=== PATIENT | male | born 1960 | race Caucasian/White ===

== ENCOUNTER 2019-08-11 17:28 | Inpatient (IN) ==
[2019-08-11 17:56] LABS: Basophils # (auto) 0.03 K/uL (0-0.2); Basophils % (auto) 0.3 %; Eosinophils # (auto) 0.16 K/uL (0-0.5); Eosinophils % (auto) 1.4 %; Hematocrit (blood only) 46.6 % (42-52); Hemoglobin 16.2 g/dL (14.0-18.0); Immature Granulocytes # (auto) 0.03 K/uL (0.00-0.02); Immature Granulocytes % (auto) 0.3 %; Lymphocytes # (auto) 2.91 K/uL (1.2-3.4); Lymphocytes % (auto) 25.9 %; Mean Corpuscular Hemoglobin 30.2 pg (25-34); Mean Corpuscular Hgb Conc 34.8 g/dL (32-36); Mean Corpuscular Volume 86.8 fL (80-100); Mean Platelet Volume 10.5 fL (7.4-10.4); Monocytes # (auto) 0.98 K/uL (0.11-0.59); Monocytes % (auto) 8.7 %; Neutrophils # (auto) 7.12 K/uL (1.4-6.5); Neutrophils % (auto) 63.4 %; Platelet Count 292 K/uL (130-400); RDW Coefficient of Variation 14.9 % (11.5-14.5); RDW Standard Deviation 46.9 fL (36.4-46.3); Red Blood Count 5.37 M/uL (4.7-6.1); White Blood Count 11.23 K/uL (4.8-10.8)
--- NOTE | 2019-08-11 17:56 | XRay Report ---
SINGLE VIEW CHEST CLINICAL HISTORY: Atypical chest pain. FINDINGS: An AP, portable, upright chest radiograph is compared to study dated 08/20/2013. The examina tion is degraded by portable technique and apical lordotic positioning. The heart is enlarged noting atherosclerotic calcification of the thoracic aorta. The pulmonary vasculature is noncongested. There is mild left basilar atelectasis. The lungs and pleural spaces are otherwise clear. No pneumothorax is seen. The skeletal structures are osteopenic. The bony thorax is grossly intact. IMPRESSION: Cardiomegaly with no active disease in the chest. ACT 112: Negative or not required by law. Electronically signed by: Keven Goodman M.D. 08/11/2019 5:55 PM
[2019-08-11] MEDS ORDERED: SODIUM CHLORIDE 0.9% 500 ML IV SCH (18:00)
[2019-08-11 18:07] LABS: Partial Thromboplastin Ratio 0.9; Partial Thromboplastin Time 24.4 Seconds (21.0-31.0); Prothrombin Time 10.2 Seconds (9.0-12.0)
[2019-08-11] MEDS ORDERED: OPTIRAY 320 125ml IV PRN (18:15)
[2019-08-11 18:27] LABS: Alanine Aminotransferase 20 U/L (12-78); Albumin Level 4.3 gm/dl (3.4-5.0); Alkaline Phosphatase 98 U/L (45-117); Aspartate Aminotransferase 12 U/L (15-37); BUN Creatinine Ratio 9.4 (10-20); Bilirubin,Total 0.4 mg/dl (0.2-1); Blood Urea Nitrogen 10 mg/dl (7-18); Calcium 9.5 mg/dl (8.5-10.1); Carbon Dioxide 27 mmol/L (21-32); Chloride 97 mmol/L (98-107); Creatinine Clr Calc Pharmacy 104.3 ml/min; Est GFR (African American) 87.2; Est GFR (Non-African American) 75.3; Globulin 4.1 gm/dl (2.5-4.0); Glucose 381 mg/dl (70-99); Lipase 195 U/L (73-393); Potassium 3.7 mmol/L (3.5-5.1); Sodium 132 mmol/L (136-145); Total Protein 8.4 gm/dl (6.4-8.2); Troponin I 0.093 ng/ml (0-0.045)
--- NOTE | 2019-08-11 18:37 | CT Scan Report ---
CT ANGIOGRAM OF THE CHEST CLINICAL HISTORY: Dyspnea. COMPARISON STUDY: Chest x-ray dated 08/11/2019. TECHNIQUE: Following the IV administration of 94 cc of Optiray 320, CT angiogram of the chest was per formed from the upper abdomen to the thoracic inlet utilizing the pulmonary embolus protocol. Images are reviewed in the axial, sagittal, and coronal planes. 3-D MIPS images are created and assessed. IV contrast was administered without complication. A dose lowering technique was utilized adhering to the principles of ALARA. CT DOSE: 828.31 mGy.cm FINDINGS: Thyroid: Imaged portions of the thyroid gland are normal in size and attenuation. Thoracic aorta: There is mild atherosclerotic calcification of the thoracic aorta. There is aneurysma l dilatation of the ascending thoracic aorta which measures up to 4.5 cm in diameter. The remainder o f the thoracic aorta is normal in caliber, and the arch and demonstrates standard 3-vessel anatomy. T here is suboptimal contrast opacification of the thoracic aorta, with no evidence of dissection. Pulmonary vasculature: The pulmonary trunk is dilated, measuring 3.7 cm in diameter. This suggests pu lmonary artery hypertension. There are no filling defects identified in main, lobar, or segmental pul monary branches to suggest pulmonary embolus. Evaluation of the peripheral vessels is degraded by mot ion artifact. Heart: The heart is markedly enlarged and without pericardial effusion. The coronary arteries are den sely calcified. Lungs and pleural spaces: Evaluation of the lung parenchyma is modestly degraded by motion artifact. There is no airspace consolidation or pleural effusion. Dependent atelectasis is noted. There are sca ttered tiny calcified granulomas. The trachea and central airways are clear. Mediastinum: Prominent mediastinal lymph nodes measure up to 12 mm in short axis. Cathleen: Clear. Axillae: There is no axillary lymphadenopathy. Upper abdomen: There is a small hiatal hernia. Partially visualized upper abdominal viscera is otherw ise grossly unremarkable. Skeletal structures: The skeletal structures are osteopenic. No lytic or blastic bony lesions are see n. IMPRESSION: 1. There is no evidence of pulmonary embolus in the main, lobar, or segmental pulmonary arteries. 2. Marked cardiomegaly with evidence of pulmonary artery hypertension. 3. There is aneurysmal dilatation of the ascending thoracic aorta which measures up to 4.5 cm in diam eter. Nonemergent surgical follow-up is recommended. 4. There is no airspace consolidation or pleural effusion. ACT 112: Negative or not required by law. Electronically signed by: Keven Goodman M.D. 08/11/2019 6:35 PM
[2019-08-11] MEDS ORDERED: LABETALOL HCL IV 5 MG/ML 20ML IV STA ×2 (18:40→19:36)
[2019-08-11] MEDS ORDERED: Heparin BOLUS **ED Use Only IV STA (19:31)
[2019-08-11] MEDS ORDERED: NovoLIN-R INSULIN PER UNIT CHARGE IV STA (19:36)
[2019-08-11] MEDS: HEPARIN SODIUM/DEXTROSE 25,000 UNITS/500 ML BAG IV SCH (19:47)
--- NOTE | 2019-08-11 21:10 | Emergency Department Note ---
Entered by Estelle Coffey acting as a scribe for Reynold Keys DO History of Present Illness General Chief complaint: Referred by Doctor Stated complaint: BLOOD CLOT IN RIGHT LEG - REF BY DOC Source: patient History of Present Illness Provider complaint: right leg swelling Onset (ago): week(s) (several) Location: lower extremity and right Pain Consistency: + constant Maximum Pain Intensity: 0 Relieved By: + none Exacerbated By: + none Associated symptoms: + other (-right leg pain, -diarrhea); no chest pain, no nausea/vomiting and no shortness of breath The patient is a 59 year old male who presents to the Emergency Room with complaints of constant right lower extremity swelling for the past several h ours. The patient reports that he was at his PCP today and they referred him to the ED because of a blood clot. He reports that his PCP wanted a CT of the chest done. The patient reports that he was recently placed back on hypertension medication on Friday. He denies any chest pain, shortness of breath, nausea, vomiting, or diarrhea. He denies any right lower extremity pain. He denies any recent travel. Home Medications Home Medications Medication Instructions Recorded Confirmed Type aspirin [Aspir-81] 81 mg PO DAILY 08/11/19 08/11/19 History furosemide [Lasix] 40 mg PO DAILY 08/11/19 08/11/19 History furosemide [Lasix] 40 mg PO DAILY PRN 08/11/19 08/11/19 History hydralazine 100 mg PO TID 08/11/19 08/11/19 History lisinopril 10 mg PO BID 08/11/19 08/11/19 History metformin [Glucophage] 500 mg PO BID 08/11/19 08/11/19 History metoprolol succinate [Toprol XL] 75 mg PO BID 08/11/19 08/11/19 History nitroglycerin [Nitrostat] 0.4 mg SUBLINGUAL UD PRN 08/11/19 08/11/19 History Allergies Allergy/AdvReac Type Severity Reaction Status Date / Time No Known Allergies Allergy Unverified 08/11/19 18:43 Past Med/Surg History Medical History Hypertension (Inactive) Social History Preferred Language: Khmer Feels Safe at Home: Yes Smoking Status: Never smoker Review of Systems See HPI for pertinent positives & negatives. and A total of 10 systems reviewed and were otherwise negative Physical Exam Vital Signs Vital Signs - 24 hr 08/11/19 17:32 08/11/19 18:19 08/11/19 18:30 Temperature 36.8 C Temperature Source Oral Pulse Rate 91 H 92 H 85 Pulse Rate from SpO2 Sensor 92 H 85 Respiratory Rate 18 20 18 Respiratory Effort / Characteristics Non-Labored Spontaneous Respiratory Depth Normal Respiratory Pattern Regular Blood Pressure 221/110 H 207/154 H 210/132 H Blood Pressure Mean 147 180 165 Blood Pressure Position Sitting Pulse Oximetry 98 98 97 Oxygen Delivery Method Room Air Sepsis Recent Fever Within 48 Hours No Sepsis New/Unexplained Change in Mental Status No Sepsis Action Taken by Nursing No Action Required 08/11/19 18:38 08/11/19 18:53 08/11/19 18:55 Temperature Temperature Source Pulse Rate 89 89 Pulse Rate from SpO2 Sensor 79 85 Respiratory Rate 23 21 Respiratory Effort / Characteristics Respiratory Depth Respiratory Pattern Blood Pressure 217/146 H 224/139 H Blood Pressure Mean 171 151 Blood Pressure Position Pulse Oximetry 98 96 96 Oxygen Delivery Method Room Air Sepsis Recent Fever Within 48 Hours Sepsis New/Unexplained Change in Mental Status Sepsis Action Taken by Nursing 08/11/19 19:00 08/11/19 19:35 08/11/19 19:39 Temperature Temperature Source Pulse Rate 83 76 81 Pulse Rate from SpO2 Sensor 81 76 81 Respiratory Rate 26 H 23 20 Respiratory Effort / Characteristics Respiratory Depth Respiratory Pattern Blood Pressure 213/141 H 178/123 H 183/122 H Blood Pressure Mean 161 131 144 Blood Pressure Position Pulse Oximetry 96 97 96 Oxygen Delivery Method Sepsis Recent Fever Within 48 Hours Sepsis New/Unexplained Change in Mental Status Sepsis Action Taken by Nursing 08/11/19 19:40 08/11/19 19:50 08/11/19 20:00 Temperature Temperature Source Pulse Rate 81 77 77 Pulse Rate from SpO2 Sensor 78 78 76 Respiratory Rate 20 23 20 Respiratory Effort / Characteristics Respiratory Depth Respiratory Pattern Blood Pressure 181/128 H 190/126 H 183/116 H Blood Pressure Mean 134 151 138 Blood Pressure Position Pulse Oximetry 96 96 95 Oxygen Delivery Method Sepsis Recent Fever Within 48 Hours Sepsis New/Unexplained Change in Mental Status Sepsis Action Taken by Nursing 08/11/19 20:10 08/11/19 20:20 08/11/19 20:30 Temperature Temperature Source Pulse Rate 77 74 73 Pulse Rate from SpO2 Sensor 71 69 63 Respiratory Rate 25 H 21 14 Respiratory Effort / Characteristics Respiratory Depth Respiratory Pattern Blood Pressure 178/114 H 153/94 H 146/92 H Blood Pressure Mean 124 118 108 Blood Pressure Position Pulse Oximetry 95 95 94 Oxygen Delivery Method Sepsis Recent Fever Within 48 Hours Sepsis New/Unexplained Change in Mental Status Sepsis Action Taken by Nursing 08/11/19 20:40 08/11/19 20:50 Temperature Temperature Source Pulse Rate 71 72 Pulse Rate from SpO2 Sensor 71 72 Respiratory Rate 20 21 Respiratory Effort / Characteristics Respiratory Depth Respiratory Pattern Blood Pressure 160/97 H 147/93 H Blood Pressure Mean 112 107 Blood Pressure Position Pulse Oximetry 93 94 Oxygen Delivery Method Sepsis Recent Fever Within 48 Hours Sepsis New/Unexplained Change in Mental Status Sepsis Action Taken by Nursing GENERAL: alert, sitting up in bed, well nourished, no distress, non-toxic EYE EXAM: normal conjunctiva OROPHARYNX: no exudate, no erythema, lips, buccal mucosa, and tongue normal and mucous membranes are moist NECK: supple, no nuchal rigidity, no adenopathy, non-tender LUNGS: Clear to auscultation. Normal chest wall mechanics HEART: no murmurs, S1 normal and S2 normal ABDOMEN: abdomen soft, non-tender, normo-active bowel sounds, no masses, no rebound or guarding. BACK: Back is symmetrical on inspection and there is no deformity, no midline tenderness, no CVA tenderness. SKIN: no rashes and no bruising UPPER EXTREMITIES: upper extremities are grossly normal. LOWER EXTREMITIES: No pitting edema. Right calf larger than left. DP and PT 2/4. NEURO EXAM: Normal sensorium, cranial nerves II-XII grossly intact, normal speech, no gross weakness of arms, no gross weakness of legs. Course Course ED COURSE: Vital signs were reviewed and showed hypertensive and tachycardic. The patients medical record was reviewed The above diagnostic studies were performed and reviewed. ED treatments and interventions as stated above. 1740: The patient was evaluated in room A9B. A complete history and physical examination was performed. 1901: I reevaluated the patient and updated him on his results. I recommended a dmission and he declined. 1914: Upon reevaluation, the patient is resting comfortably. I discussed my findings with the patient and he understands and agrees with the treatment plan. 1929: I reviewed the patient's case with Dr. Jimenez- [facility] Hospitalist. He will evaluate the patient for further management. Based on the patients age, coexisting illnesses, exam and lab findings the decision to treat as an inpatient was made. The patient remained stable while under my care. The patient will be evaluated for further management. Administered Medications Heparin Sodium/Dextrose (Heparin Sodium/Dextrose) 25,000 units in 500 mls @ 36 mls/hr IV .[id number] [facility]; Protocol Stop: 09/10/19 18:44 Last Admin: 08/11/19 19:47 Dose: 1,800 units/hr, 36 mls/hr Documented by: [id number] Cosigned by: [id number] Ioversol (Optiray 320 125ml) 94 ml IV ONCE PRN PRN Reason: Interaction Checking Stop: 08/15/19 18:14 Last Admin: 08/11/19 18:15 Dose: 94 ml Documented by: [id number] Discontinued Medications Heparin Sodium (Porcine) (Heparin Iv Bolus) 8,000 units IV NOW STA Stop: 08/11/19 19:32 Last Admin: 08/11/19 19:48 Dose: 5,000 units Documented by: [id number] Cosigned by: [id number] Heparin Sodium/Dextrose () 1 ea IV NOW STA; Protocol Stop: 08/11/19 18:41 Last Admin: 08/11/19 20:11 Dose: 1 ea Documented by: [id number] Sodium Chloride (Nss) 500 mls @ 999 mls/hr IV .Q31M [facility] Stop: 08/11/19 18:30 Last Infusion: 08/11/19 18:38 Dose: 0 mls/hr Documented by: [id number] Admin: 08/11/19 18:10 Dose: 999 mls/hr Documented by: [id number] Insulin Human Regular (Novolin R U-100 Per Unit) 5 units IV NOW STA Stop: 08/11/19 19:37 Last Admin: 08/11/19 19:48 Dose: 5 units Documented by: [id number] Cosigned by: [id number] Labetalol HCl (Normodyne) 10 mg IV NOW STA Stop: 08/11/19 18:41 Last Admin: 08/11/19 19:35 Dose: 10 mg Documented by: [id number] Cosigned by: [id number] Labetalol HCl (Normodyne) 10 mg IV NOW STA Stop: 08/11/19 19:37 Last Admin: 08/11/19 20:11 Dose: 10 mg Documented by: [id number] Cosigned by: [id number] Critical Care Time Critical Care Time: Yes Total Critical Care Time: 45 I have personally spent 45 minutes of critical care time in the direct management of this patient. This includes bedside care, interpretation of diagnostic studies, and testing, discussion with consultants, patient, and family members, and other required patient management activities. This 45 minutes is in excess of all separately billable procedures. Medical Decision Making Differential Diagnosis Differential diagnosis: Etiologies such as DVT, musculoskeletal, infection, join t effusion, trauma, lymphedema, idiopathic, CHF, as well as others were entertained. Medical Records Attestation: I reviewed the patient's medical records. Home Medications Current Medication List: was personally reviewed by me Laboratory Data Attestation: I reviewed the patient's lab results. Result diagrams: 08/11/19 17:45 08/11/19 17:45 Lab Results 08/11/19 08/11/19 08/11/19 Range/Units 17:45 17:45 17:45 WBC 11.23 H (4.8-10.8) K/uL RBC 5.37 (4.7-6.1) M/uL Hgb 16.2 (14.0-18.0) g/dL Hct 46.6 (42-52) % MCV 86.8 (80-100) fL MCH 30.2 (25-34) pg MCHC 34.8 (32-36) g/dL RDW Std Deviation 46.9 H (36.4-46.3) fL RDW Coeff of Kerline 14.9 H (11.5-14.5) % Plt Count 292 (130-400) K/uL MPV 10.5 H (7.4-10.4) fL Immature Gran % (Auto) 0.3 % Neut % (Auto) 63.4 % Lymph % (Auto) 25.9 % Giles % (Auto) 8.7 % Eos % (Auto) 1.4 % Baso % (Auto) 0.3 % Immature Gran # (Auto) 0.03 H (0.00-0.02) K/uL Neut # (Auto) 7.12 H (1.4-6.5) K/uL Lymph # (Auto) 2.91 (1.2-3.4) K/uL Giles # (Auto) 0.98 H (0.11-0.59) K/uL Eos # (Auto) 0.16 (0-0.5) K/uL Baso # (Auto) 0.03 (0-0.2) K/uL PT 10.2 (9.0-12.0) Seconds INR 1.0 (0.9-1.1) APTT 24.4 (21.0-31.0) Seconds PTT Ratio 0.9 Sodium 132 L (136-145) mmol/L Potassium 3.7 (3.5-5.1) mmol/L Chloride 97 L (98-107) mmol/L Carbon Dioxide 27 (21-32) mmol/L Anion Gap 9.0 (3-11) BUN 10 (7-18) mg/dl Creatinine 1.08 (0.6-1.4) mg/dl POC Creatinine (0.6-1.3) mg/dl Est Cr Clr Drug Dosing 104.3 ml/min Est GFR ( Amer) 87.2 Est GFR (Non-Af Amer) 75.3 BUN/Creatinine Ratio 9.4 L (10-20) Glucose 381 H* (70-99) mg/dl POC Glucose (70-99) mg/dl Calcium 9.5 (8.5-10.1) mg/dl Total Bilirubin 0.4 (0.2-1) mg/dl AST 12 L (15-37) U/L ALT 20 (12-78) U/L Alkaline Phosphatase 98 (45-117) U/L Troponin I 0.093 H* (0-0.045) ng/ml Total Protein 8.4 H (6.4-8.2) gm/dl Albumin 4.3 (3.4-5.0) gm/dl Globulin 4.1 H (2.5-4.0) gm/dl Albumin/Globulin Ratio 1.0 (0.9-2) Lipase 195 (73-393) U/L Beta-Hydroxybutyric Acd TNP 08/11/19 08/11/19 08/11/19 Range/Units 17:51 19:06 20:32 WBC (4.8-10.8) K/uL RBC (4.7-6.1) M/uL Hgb (14.0-18.0) g/dL Hct (42-52) % MCV (80-100) fL MCH (25-34) pg MCHC (32-36) g/dL RDW Std Deviation (36.4-46.3) fL RDW Coeff of Kerline (11.5-14.5) % Plt Count (130-400) K/uL MPV (7.4-10.4) fL Immature Gran % (Auto) % Neut % (Auto) % Lymph % (Auto) % Giles % (Auto) % Eos % (Auto) % Baso % (Auto) % Immature Gran # (Auto) (0.00-0.02) K/uL Neut # (Auto) (1.4-6.5) K/uL Lymph # (Auto) (1.2-3.4) K/uL Giles # (Auto) (0.11-0.59) K/uL Eos # (Auto) (0-0.5) K/uL Baso # (Auto) (0-0.2) K/uL PT (9.0-12.0) Seconds INR (0.9-1.1) APTT (21.0-31.0) Seconds PTT Ratio Sodium (136-145) mmol/L Potassium (3.5-5.1) mmol/L Chloride (98-107) mmol/L Carbon Dioxide (21-32) mmol/L Anion Gap (3-11) BUN (7-18) mg/dl Creatinine (0.6-1.4) mg/dl POC Creatinine 0.8 (0.6-1.3) mg/dl Est Cr Clr Drug Dosing ml/min Est GFR ( Amer) Est GFR (Non-Af Amer) BUN/Creatinine Ratio (10-20) Glucose (70-99) mg/dl POC Glucose 333 H* 299 H (70-99) mg/dl Calcium (8.5-10.1) mg/dl Total Bilirubin (0.2-1) mg/dl AST (15-37) U/L ALT (12-78) U/L Alkaline Phosphatase (45-117) U/L Troponin I (0-0.045) ng/ml Total Protein (6.4-8.2) gm/dl Albumin (3.4-5.0) gm/dl Globulin (2.5-4.0) gm/dl Albumin/Globulin Ratio (0.9-2) Lipase (73-393) U/L Beta-Hydroxybutyric Acd Imaging Data Radiologist's Impression: Radiology results as stated below per my review and the radiologist's interpretation: SINGLE VIEW CHEST CLINICAL HISTORY: Atypical chest pain. FINDINGS: An AP, portable, upright chest radiograph is compared to study dated 08/20/2013. The examination is degraded by portable technique and apical lordotic positioning. The heart is enlarged noting atherosclerotic calcification of the thoracic aorta. The pulmonary vasculature is noncongested. There is mild left basilar atelectasis. The lungs and pleural spaces are otherwise clear. No pneumothorax is seen. The skeletal structures are osteopenic. The bony thorax is grossly intact. IMPRESSION: Cardiomegaly with no active disease in the chest. ACT 112: Negative or not required by law. Electronically signed by: Keven Goodman M.D. 08/11/2019 5:[address] ANGIOGRAM OF THE CHEST CLINICAL HISTORY: Dyspnea. COMPARISON STUDY: Chest x-ray dated 08/11/2019. TECHNIQUE: Following the IV administration of 94 cc of Optiray 320, CT angiogram of the chest was performed from the upper abdomen to the thoracic inlet utilizing the pulmonary embolus protocol. Images are reviewed in the axial, sagittal, and coronal planes. 3-D MIPS images are created and assessed. IV contrast was administered without complication. A dose lowering technique was utilized adhering to the principles of ALARA. CT DOSE: 828.31 mGy.cm FINDINGS: Thyroid: Imaged portions of the thyroid gland are normal in size and attenuation. Thoracic aorta: There is mild atherosclerotic calcification of the thoracic aorta. There is aneurysmal dilatation of the ascending thoracic aorta which measures up to 4.5 cm in diameter. The remainder of the thoracic aorta is normal in caliber, and the arch and demonstrates standard 3-vessel anatomy. There is suboptimal contrast opacification of the thoracic aorta, with no evidence of dissection. Pulmonary vasculature: The pulmonary trunk is dilated, measuring 3.[address] This suggests pulmonary artery hypertension. There are no filling defects identified in main, lobar, or segmental pulmonary branches to suggest pulmonary embolus. Evaluation of the peripheral vessels is degraded by motion artifact. Heart: The heart is markedly enlarged and without pericardial effusion. The coronary arteries are densely calcified. Lungs and pleural spaces: Evaluation of the lung parenchyma is modestly degraded by motion artifact. There is no airspace consolidation or pleural effusion. Dependent atelectasis is noted. There are scattered tiny calcified granulomas. The trachea and central airways are clear. Mediastinum: Prominent mediastinal lymph nodes measure up to 12 mm in short axis. Cathleen: Clear. Axillae: There is no axillary lymphadenopathy. Upper abdomen: There is a small hiatal hernia. Partially visualized upper abdominal viscera is otherwise grossly unremarkable. Skeletal structures: The skeletal structures are osteopenic. No lytic or blastic bony lesions are seen. IMPRESSION: 1. There is no evidence of pulmonary embolus in the main, lobar, or segmental pulmonary arteries. 2. Marked cardiomegaly with evidence of pulmonary artery hypertension. 3. There is aneurysmal dilatation of the ascending thoracic aorta which measures up to 4.5 cm in diameter. Nonemergent surgical follow-up is recommended. 4. There is no airspace consolidation or pleural effusion. ACT 112: Negative or not required by law. Electronically signed by: Keven Goodman M.D. 08/11/2019 6:35 PM ECG Data Attestation: I personally reviewed and interpreted this ECG as follows: Indication: + other (lower extremity swelling) Rate (beats per minute): 97 Rhythm: + sinus rhythm ECG [place]: + Left axis deviation ECG ST segments: + Nonspecific ST abnormalities (lateral and high lateral) ECG Findings: + PVCs Comparison ECG Date: from (08/19/13) Change: the following changes noted (Nonspecific ST changes in lateral and high lateral are worse) Blood Pressure Blood Pressure Findings: Elevated blood pressure Blood Pressure Disposition: further management by hospitalist BRISA Narrative Patient is a 59-year-old male who presents the ER referred in by her PCP for a CT scan of the chest. Recent diagnosis of a DVT in his right lower extremity. IV was established blood work was obtained and showed mild leukocytosis. No significant anemia. INR was unremarkable. BMP with mild hyponatremia. Glucose was elevated at 381. Patient was given IV fluids and IV insulin. LFTs bilirubin were negative. Troponin was +0.093. Upon review of the chart he has had previous elevated troponins but they are lower than this. Blood pressure was 220. Lipase was normal. Patients EKG shows ST wave changes in the lateral and high lateral leads. Patient denies any chest pain or shortness of breath. Did order heparin IV bolus and drip. Patient denies any recent surgery trips trauma coughing up blood urinating blood or vomiting blood. Patient was placed on heparin drip and bolus. Do not believe this to be ACS but favor likely secondary to hypertensive emergency. CT PE showed no pulmonary emboli. Patient was given 2 dose of IV Lopressor. Blood pressure did trend down slightly. Initially want to go home but eventually was agreeable and discussed with the hospitalist for admission. Impression & Plan Hypertensive emergency, Elevated troponin, Acute electrocardiography changes Discharge Plan Visit Data Chief Complaint: Referred by Doctor Stated Complaint: BLOOD CLOT IN RIGHT LEG - REF BY DOC ED Provider: Reynold Keys Discharge Problem: Hypertensive emergency, Elevated troponin, Acute electrocardiography changes Patient Disposition: Being Evaluated by Hospitalist Forms Stand Alone Forms: My [facility] Prescriptions Prescriptions: No Action furosemide [Lasix] 40 mg tablet 40 mg PO DAILY RF: 0 furosemide [Lasix] 40 mg tablet 40 mg PO DAILY PRN (Reason: retaining fluid) RF: 0 metformin [Glucophage] 500 mg tablet 500 mg PO BID RF: 0 metoprolol succinate [Toprol XL] 50 mg tablet extended release 24 hr 75 mg PO BID RF: 0 aspirin [Aspir-81] 81 mg Tablet,Delayed Release (Dr/Ec) 81 mg PO DAILY RF: 0 hydralazine 100 mg tablet 100 mg PO TID RF: 0 lisinopril 10 mg tablet 10 mg PO BID RF: 0 nitroglycerin [Nitrostat] 0.4 mg Tablet, Sublingual 0.4 mg sublingual UD PRN (Reason: Chest Pain) RF: 0 Referrals Referrals: PCP,NO [Primary Care Provider] - The scribe's documentation has been prepared under my direction and personally reviewed by me in its entirety. I confirm that the note above accurately reflects all work, treatment, procedures, and medical decision making performed by me.
[2019-08-11] MEDS ORDERED: POLYETHYLENE (MIRALAX) 17 GM PACK PO PRN (21:30)
[2019-08-11] MEDS ORDERED: NITROGLYCERIN SL 0.4 MG/TAB TAB SL PRN ×2 (21:30)
[2019-08-11] MEDS ORDERED: INSULIN GLARGINE SOLOSTAR 100 UNITS/ML 3 ML PEN SC SCH (21:30)
[2019-08-11] MEDS ORDERED: ACETAMINOPHEN 325 MG TAB PO PRN (21:30)
[2019-08-11] MEDS ORDERED: ONDANSETRON INJ 2 MG/ML 2 ML VIAL IV PRN (21:30)
[2019-08-11] MEDS: lisinopriL 10 MG TAB PO SCH (22:12)
[2019-08-11] MEDS: HydrALAZINE TAB 50 MG TAB PO SCH (22:12)
[2019-08-11] MEDS: METOPROLOL SUCC 25MG EXT REL TAB PO SCH (22:12)
[2019-08-11] MEDS: INSULIN ASPART 100 UNITS/ML 3 ML PEN SC SCH (22:13)
--- NOTE | 2019-08-11 22:26 | History and Physical Report ---
DATE OF ADMISSION: 08/11/2019 CHIEF COMPLAINT: Hypertensive urgency, right lower extremity venous thrombosis. HISTORY OF PRESENT ILLNESS: This is a 59-year-old male with past medical history significant for diabetes, dilated cardiomyopathy, hypertension, morbid obesity, who presents because of increased right lower extremity swelling and also uncontrolled blood pressure. The patient states he ran out of medication 2 weeks ago and was not taking his blood pressure medications since last 2 weeks and he started taking them last Friday and also his right lower extremity swelling was worsened than before, he thinks because of not taking his Lasix, but outpatient venous Doppler showed superficial thrombosis in the right greater saphenous vein approaching to the right common femoral vein and his blood pressure was also still uncontrolled in 200s, so he was referred to the ER. The patient denies any complaints. He denies any chest pain, no shortness of breath, no cough, no fever, no chills, no headache, no blurred visions, no earache, no runny nose, no sore throat, no difficulty swallowing. He says the last 3-4 months, he lost about 20-25 pounds without trying to lose weight. Otherwise, he says he is ambulating fine. He has some trouble climbing steps because of his knee pain. He does not sleep well because he has to go to bathroom frequently in the night. Normal bowel and bladder movements. No blood in stools or black stools. No hematuria, no burning micturition. Currently resting comfortably, but blood pressure is running high. He received labetalol in the ER and he was started on IV heparin. ALLERGIES: No known drug allergies. PAST MEDICAL HISTORY: As mentioned above. PAST SURGICAL HISTORY: Lumbar disc surgery. MEDICATIONS: The patient is on aspirin 81 mg p.o. daily, Lasix 40 mg p.o. daily p.r.n., hydralazine 100 mg p.o. t.i.d., lisinopril 10 mg p.o. b.i.d., Glucophage 500 mg p.o. b.i.d., Toprol-XL 75 mg p.o. b.i.d., nitroglycerin 0.4 sublingual p.r.n., supposed to be on Hytrin 5 mg daily, but patient does not remember about it. FAMILY HISTORY: Significant for mother had diabetes. Father had COPD, hypertension. SOCIAL HISTORY: . No smoking, no alcohol, no drug use. REVIEW OF SYSTEMS: As per HPI. Rest of the review of systems negative. PHYSICAL EXAMINATION: GENERAL: The patient is obese, not in acute distress. VITAL SIGNS: Temperature 36.8, pulse 91, respiratory rate 18, blood pressure 221/110, oxygen 98% on room air. HEENT: No pallor, no icterus. Pupils equal, round, and reactive to light. NECK: No JVD, no neck masses, no carotid bruits. CARDIOVASCULAR: S1, S2 heard, regular rate and rhythm, no murmur, no gallop. RESPIRATORY SYSTEM: Normal AP diameter. No accessory muscle use. No wheezing, no crackles. ABDOMEN: Soft, bowel sounds present, nontender. No distention. CENTRAL NERVOUS SYSTEM: Cranial nerves II-XII grossly intact. Nonfocal. EXTREMITIES: Right lower extremity swollen. Chronic skin changes seen. No erythema, no tenderness on palpation. LABORATORY DATA: WBC 11.2, hemoglobin 16.2, hematocrit 46.6, platelets 292. PT 10.2, INR 1, APTT 24.4. Sodium 132, potassium 3.7, chloride 97, bicarbonate 27, BUN 10, creatinine 1.08, serum glucose 381, calcium 9.5, total bilirubin 0.4, AST of 12, ALT 20, alkaline phosphatase 98. Troponin 1 of 0.09, lipase 195. IMAGING DATA: Chest x-ray, cardiomegaly with no acute active disease in the chest. CTA of the chest, no evidence of pulmonary embolus in the main, lobar, and segmental pulmonary arteries. Marked cardiomegaly with evidence of pulmonary arterial hypertension. Dilatation of the ascending thoracic aorta, 4.5 cm. EKG: Sinus rhythm with PACs at the rate of 97, incomplete left bundle-branch block, nonspecific T-wave abnormalities, prolonged QTC of 474. ASSESSMENT AND PLAN: This is a 59-year-old male noncompliant with medications, who presents with hypertensive urgency and superficial venous thrombosis in the right lower extremity and hyperglycemia and mild elevation of troponin. 1. Hypertensive urgency. The patient says he did not take his medication for the last 2 weeks, he ran out of medications, and started taking them since last Friday, but blood pressure has not much improved much. Will continue his home medication of hydralazine, lisinopril, Toprol-XL. As per PSYCHIATRIC, he is supposed to be on Hytrin, but patient does not remember about it. Currently, we placed him on labetalol p.r.n. Monitor in the tele floor. Consult cardiology for further recommendation. 2. Mild elevation of troponin, most likely from demand ischemia secondary to above. We will follow the serial enzymes and echocardiogram. 3. History of dilated cardiomyopathy. He has history of EF of 20% to 25%, but improved to 55% in echo in 2015. Also has history of diastolic congestive heart failure. Currently not in exacerbation. Continue his Lasix, Toprol-XL, lisinopril, and hydralazine. Follow his echocardiogram and await cardiology input. He did not follow with cardiology for the last 5 years . Consulted cardiology. 4. Superficial venous thrombosis on the venous Doppler study done today as outpatient showing superficial thrombophlebitis in the right great saphenous vein approaching but not extending to the right common femoral vein. Started on IV heparin in the ER which will be continued. CTA chest, no PE. Follow up with primary care physician for further workup. 5. Diabetes, seems to be poorly controlled, not checking sugars at home. He says he does not have glucometer. He was running 300s in the ER. We will place him on Lantus and insulin sliding scale. Hold metformin. Check HbA1c levels. Diabetic education consult. Social service to help with glucometer and medications. 6. Ascending thoracic aortic aneurysm 4.5 cm on the CAT scan. Needs followup with Vascular Surgery. 7. Weight loss. The patient had weight loss about 25 pounds in last 4 months, unintentional, could be from uncontrolled diabetes. Needs followup. 8. Deep venous thrombosis prophylaxis. Starting on IV heparin. DISPOSITION: Closely monitor in the tele floor. Level 1 full code. PT and OT prior to discharge. Social service to help with discharge planning. CARLITO
[2019-08-12 02:31] LABS: Partial Thromboplastin Ratio 1.4; Partial Thromboplastin Time 39.2 Seconds (21.0-31.0)
[2019-08-12] MEDS ORDERED: HEPARIN IV BOLUS 8,000 UNITS in SYRINGE 0 ML IV STA (02:52)
[2019-08-12 06:08] LABS: Basophils # (auto) 0.02 K/uL (0-0.2); Basophils % (auto) 0.2 %; Eosinophils # (auto) 0.18 K/uL (0-0.5); Hematocrit (blood only) 43.7 % (42-52); Hemoglobin 14.9 g/dL (14.0-18.0); Immature Granulocytes # (auto) 0.02 K/uL (0.00-0.02); Immature Granulocytes % (auto) 0.2 %; Lymphocytes # (auto) 3.29 K/uL (1.2-3.4); Lymphocytes % (auto) 37.3 %; Mean Corpuscular Hemoglobin 29.7 pg (25-34); Mean Corpuscular Hgb Conc 34.1 g/dL (32-36); Mean Corpuscular Volume 87.1 fL (80-100); Mean Platelet Volume 11.1 fL (7.4-10.4); Monocytes # (auto) 0.53 K/uL (0.11-0.59); Neutrophils # (auto) 4.78 K/uL (1.4-6.5); Neutrophils % (auto) 54.3 %; Platelet Count 253 K/uL (130-400); RDW Coefficient of Variation 14.9 % (11.5-14.5); RDW Standard Deviation 47.4 fL (36.4-46.3); Red Blood Count 5.02 M/uL (4.7-6.1); White Blood Count 8.82 K/uL (4.8-10.8)
[2019-08-12 06:57] LABS: BUN Creatinine Ratio 10.9 (10-20); Calcium 8.7 mg/dl (8.5-10.1); Creatinine Clr Calc Pharmacy 148.8 ml/min; Est GFR (African American) 117.2; Est GFR (Non-African American) 101.1; Magnesium 1.6 mg/dl (1.8-2.4); Potassium 2.9 mmol/L (3.5-5.1)
[2019-08-12] MEDS: LABETALOL HCL IV 5 MG/ML 20ML IV PRN ×2 (07:45→11:57)
[2019-08-12] MEDS ORDERED: POTASSIUM CHLORIDE 20 MEQ TABCR PO STA (07:47)
[2019-08-12] MEDS ORDERED: PHARMACY GLYCEMIC MGMT CONSULT SCH (07:48)
[2019-08-12] MEDS ORDERED: PERFLUTREN LIPID MICROSPHERE (DEFINITY) IV ONE (08:47)
[2019-08-12] MEDS ORDERED: INSULIN GLARGINE SOLOSTAR 100 UNITS/ML 3 ML PEN SC ONE (09:00)
[2019-08-12] MEDS: INSULIN ASPART 100 UNITS/ML 3 ML PEN SC SCH ×4 (09:22→21:46)
[2019-08-12] MEDS: HEPARIN SODIUM/DEXTROSE 25,000 UNITS/500 ML BAG IV SCH (09:24)
[2019-08-12] MEDS: POTASSIUM CHLORIDE / WTR 10 MEQ/100 ML PLCT IV SCH ×2 (09:27→10:31)
[2019-08-12] MEDS: MAGNESIUM SULFATE / D5W 1 GM/100 ML BAG IV SCH ×2 (09:28→10:31)
[2019-08-12] MEDS: MAGNESIUM OXIDE 400 MG TAB PO SCH (09:39)
[2019-08-12] MEDS: AMLODIPINE BESYLATE 5 MG TAB PO SCH (09:39)
[2019-08-12] MEDS: lisinopriL 10 MG TAB PO SCH (09:40)
[2019-08-12] MEDS: METOPROLOL SUCC 25MG EXT REL TAB PO SCH (09:44)
[2019-08-12] MEDS: FUROSEMIDE 40 MG TAB PO SCH (09:44)
[2019-08-12] MEDS: ASPIRIN 81 MG ECTAB PO SCH (09:45)
[2019-08-12] MEDS: HydrALAZINE TAB 50 MG TAB PO SCH ×3 (09:45→20:07)
[2019-08-12 09:47] LABS: Partial Thromboplastin Ratio 2.4
[2019-08-12 09:56] LABS: Partial Thromboplastin Time 65.6 Seconds (21.0-31.0)
[2019-08-12] MEDS: NITROGLYCERIN 2% OINTMENT 30GM TUBE EXT SCH ×2 (12:06→18:09)
--- NOTE | 2019-08-12 12:12 | Cardiology Consultation ---
Date of Consultation August 12, 2019 Assessment & Plan (1) Hypertensive urgency: (2) Cardiomyopathy: (3) Elevated troponin: 59-year-old patient admitted from primary care physician's office due to uncontrolled hypertension and saphenous vein thrombosis. Blood pressures remain elevated. Recommend discontinuation of metoprolol in favor of carvedilol, 12.5 mg twice daily. I will add topical nitrates to improve blood pressure control acutely. Agree with addition of amlodipine. Continue furosemide, lisinopril, and hydralazine as previously ordered. Will likely require titration of lisinopril to maximum dose. Consider addition of Aldactone in the future to improve blood pressure control. Mildly elevated troponin likely secondary to hypertensive urgency. Patient without anginal symptoms or ECG evidence of evolving myocardial ischemia/infarction. I will review resting 2D transthoracic echocardiogram when images are available. Anticoagulation as per internal medicine for treatment of lower extremity venous thrombosis. Thank you for allowing to participate in the care of your patient History of Present Illness Reason for Consultation: Hypertensive urgency Requesting Physician: Dr. Bledsoe Attending Physician: Dev Bledsoe MD History of Present Illness 59-year-old patient sent in by his primary care physician due to right lower extremity superficial thrombosis and hypertensive urgency. Patient reports worsening leg edema over the past few weeks. Ran out of medications approximately 2 weeks ago due to financial constraints. Reports lifelong history of hypertension dating back to high school. Denies headaches, chest pain, shortness of breath, orthopnea, or paroxysmal nocturnal dyspnea. No palpitations, lightheadedness, dizziness, syncope, or near syncope. Aside from right lower extremity edema, patient offers no other concerns/complaints at this time. Carries a history of presumed nonischemic cardiomyopathy dating back to 2013 with a reported ejection fraction of 20 to 25%. Follow-up echocardiogram demonstrated normalization of LV systolic function. Bedside 2D transthoracic echocardiogram performed today is pending. Allergies Allergy/AdvReac Type Severity Reaction Status Date / Time No Known Allergies Allergy Unverified 08/11/19 18:43 Home Medications Home Medications Medication Instructions Recorded Confirmed Type aspirin [Aspir-81] 81 mg PO DAILY 08/11/19 08/11/19 History furosemide [Lasix] 40 mg PO DAILY 08/11/19 08/11/19 History furosemide [Lasix] 40 mg PO DAILY PRN 08/11/19 08/11/19 History hydralazine 100 mg PO TID 08/11/19 08/11/19 History lisinopril 10 mg PO BID 08/11/19 08/11/19 History metformin [Glucophage] 500 mg PO BID 08/11/19 08/11/19 History metoprolol succinate [Toprol XL] 75 mg PO BID 08/11/19 08/11/19 History nitroglycerin [Nitrostat] 0.4 mg SUBLINGUAL UD PRN 08/11/19 08/11/19 History apixaban [Eliquis] 10 mg PO BID 30 Days #74 ea 08/12/19 Rx Patient History Medical History Hypertension (Inactive) Social History Preferred Language: Ethiopian Communication Ability: Effective Employee Adviser Required: No Beliefs That Will Affect Care: None Current Living Situation: Spouse Other Information That Helps Us Care for You: No Feels Safe at Home: Yes Safety Concerns: Feels Safe At This Time Smoking Status: Never smoker Do You Dip or Chew Tobacco: No ; Second Hand Exposure: No ; Hx Alcohol Use: Yes Hx Substance Use: No Review of Systems Review of Systems: All systems reviewed & are unremarkable except as noted in HPI & below Physical Exam Constitutional: well developed, well nourished and + obese Respiratory: normal respiratory effort; no respiratory distress and no labored breathing Auscultation: no crackles, no rales, no rhonchi and no wheezes Cardiovascular: Rate/Rhythm: regular rate and regular rhythm Heart Sounds: normal S1 and normal S2; no gallop, no murmur and no cardiac rub Vessels: no JVD Extremities: + edema (1+ right lower extremity edema with stasis changes) Results & Data ([facility]) Vital Signs (Past 12 Hours) Vital Signs Temp Pulse Pulse Pulse Resp BP BP 08/12/19 11:10 36.9 C 81 18 184/129 H 08/12/19 09:46 209/134 H 218/145 H 08/12/19 07:15 74 08/12/19 07:05 36.5 C 67 20 169/113 H 190/120 H 08/12/19 03:11 36.6 C 66 18 156/98 H 156/108 H 08/12/19 01:07 169/107 H 159/98 H Pulse Ox 08/12/19 11:10 08/12/19 09:46 08/12/19 07:15 08/12/19 07:05 96 08/12/19 03:11 97 08/12/19 01:07 (1) Cardiomyopathy Cardiomyopathy type: unspecified Qualified Code(s): I42.9 - Cardiomyopathy, unspecified
--- NOTE | 2019-08-12 12:38 | Pharmacy Report ---
Pharmacy Glycemic Short Note 2 - Date of Service August 12, 2019 - Glycemic Short BSG Results (Last 24 hours): 08/11/19 08/11/19 08/11/19 17:45 19:06 20:32 Glucose 381 H* POC Glucose 333 H* 299 H 08/11/19 08/12/19 08/12/19 21:57 05:36 07:06 Glucose 290 H POC Glucose 300 H 295 H 08/12/19 11:08 Glucose POC Glucose 299 H OUTPATIENT ANTIDIABETIC REGIMEN: * metformin 500mg PO BID * A1c = 18.1% per recent out-pt testing ASSESSMENT: * Type 2 diabetic, poorly controlled per A1c, admitted for right lower extremity superficial thrombosis and hypertensive urgency * BSGs initially in upper 300s however now in upper 200's this AM. No AG acidosis present on labs. * Will initiate basal/bolus regimen based upon pt's weight and moderate stress level - will give larger Lantus dose upfront given current BSG elevation * Pt will require discharge on insulin therapy, at a minimum basal insulin + (either GLP-1 agonist or meal-time prandial insulin) + metformin PLAN FOR INPATIENT GLYCEMIC CONTROL: * Hold outpatient oral diabetes medications (metformin) * Basal insulin * Lantus 30 units SQ x 1, then BID per the following scale * 0 units if BSG less than 110 * 15 units if BSG 110-180 * 20 units if BSG above 180 * Bolus insulin * NovoLog per scale ACHS and at 0000 + 0400 initially * Goal Range: Low 110 mg/dL - High 140 mg/dL * Correction Factor: 20 mg/dL/unit --> 15mcg/dL/unit * Nutritional / Prandial insulin per carb ratio of 1 unit per 6 grams CHO consumed PLAN FOR DISCHARGE: * to be determined
--- NOTE | 2019-08-12 16:29 | Hospitalist Progress Note ---
Date of Service August 12, 2019 Assessment & Plan (1) Hypertensive emergency: -59-year-old patient admitted from primary care physician's office due to uncontrolled hypertension and saphenous vein thrombosis. Blood pressures remain elevated. -as per cardiology 08/12/2019 evaluation: discontinuation of metoprolol in favor of carvedilol, 12.5 mg twice daily; currently cardiology added scheduled topical nitrates to improve blood pressure control acutely -Continue furosemide, lisinopril, and hydralazine as previously ordered (cardiology suggests lisinopril titration to maximum dose) -continue with newly started amlodipine 5 mg daily . I will review resting 2D transthoracic echocardiogram when images are available. (2) Elevated troponin: -as per cloud software engineer "Mildly elevated troponin likely secondary to hypertensive urgency. Patient without anginal symptoms or ECG evidence of evolving myocardial ischemia/infarction" (3) Cardiomyopathy: -echocardiogram on this admission of ejection fraction 45%; as per Dr. Evans of cardiology these measurements are improvements as history of non- ischemic cardiomyopathy with ejection fraction as low as 25% in 2014 (4) Type 2 diabetes mellitus: -outpatient hemoglobin A1c of 18.1 on 08/11/2019 -discussed with patient with early childhood special educator that home dose oral metformin not sufficient -pharmacy glycemic control managing with subcutaneous insulin. patient will need to be on Insulin therapy on discharge -unintentional weight loss at home may be from diabetes mellitus (5) DVT (deep venous thrombosis): -outpatient 08/11/2019 ultrasound of lower extremity: No deep venous thrombosis detected. Superficial thrombophlebitis is seen in the right greater saphenous vein approaching but not extending into the confluence with the right common femoral vein. -given this potential progression to right common femoral vein, patient is treated as if there is typical deep vein thrombosis -CTA on 08/11/2019: 1. There is no evidence of pulmonary embolus in the main, lobar, or segmental pulmonary arteries. 2. Marked cardiomegaly with evidence of pulmonary artery hypertension. 3. There is aneurysmal dilatation of the ascending thoracic aorta which measures up to 4.5 cm in diameter. Nonemergent surgical follow-up is recommended. 4. There is no airspace consolidation or pleural effusion -patient was started on IV heparin on admission. plans to transition to Eliquis starting on 9 PM of 08/12/2019. Eliquis will be 10 mg twice a day for 7 days to be completed on 08/19/2019 and then 5 mg twice a day. minimal anticoagulation of 3 months. patient denies provoking factors such as trauma or immobility; patient will need workup of thrombosis risk factors as outpatient -unintentional weight loss at home may be from diabetes mellitus but patient may benefit from colonoscopy as outpatient Ascending thoracic aortic aneurysm -4.[address] scan -control blood pressures as above -may need nonemergent evaluation with Vascular Surgery as outpatient Admission and Anticipated Discharge Date Admission Date: August 11, 2019, discharge date undetermined at this time Subjective breathing on room air. no chest pain. no palpitations. no dizziness. no headache. no abdomen pain. no nausea. no vomiting Review of Systems Review of Systems: All systems reviewed & are unremarkable except as noted in HPI & below Physical Exam Constitutional: comfortable Eyes: PERRL, conjunctivae normal, anicteric sclerae EOM intact bilaterally ENMT: external ear and nose normal, oropharynx normal Neck: normal visual inspection Respiratory: normal respiratory effort, lungs clear to auscultation Cardiovascular: Rate/Rhythm: + bradycardic Gastrointestinal (Abdomen): normal bowel sounds, soft, nontender, no hepatosplenomegaly Musculoskeletal: Head/Neck/Chest: normocephalic and head atraumatic Skin: right leg with some welling and chronic skin discoloration changes Neurologic: PERRL, EOMI, accommodation nl, no face palsy, no dysarthria CN's II-XI intact bilaterally Psychiatric: A+Ox3, euthymic affect Results & Data ([facility]) Vital Signs (Past 12 Hours) Vital Signs Temp Pulse Pulse Pulse Resp BP BP 08/12/19 15:59 36.6 C 62 16 124/76 08/12/19 13:35 115/66 08/12/19 11:10 36.9 C 81 18 184/129 H 08/12/19 09:46 209/134 H 218/145 H 08/12/19 07:15 74 08/12/19 07:05 36.5 C 67 20 169/113 H 190/120 H Pulse Ox 08/12/19 15:59 94 08/12/19 13:35 08/12/19 11:10 08/12/19 09:46 08/12/19 07:15 08/12/19 07:05 96 (1) Cardiomyopathy Cardiomyopathy type: unspecified Qualified Code(s): I42.9 - Cardiomyopathy, unspecified
[2019-08-12 17:18] LABS: Albumin Level 3.5 gm/dl (3.4-5.0); BUN Creatinine Ratio 10.6 (10-20); Bilirubin,Total 0.5 mg/dl (0.2-1); Creatinine Clr Calc Pharmacy 132.2 ml/min; Est GFR (African American) 111.9; Est GFR (Non-African American) 96.5; Globulin 3.4 gm/dl (2.5-4.0); Potassium 3.6 mmol/L (3.5-5.1); Total Protein 6.9 gm/dl (6.4-8.2)
[2019-08-12 17:47] LABS: Partial Thromboplastin Time 54.5 Seconds (21.0-31.0)
--- NOTE | 2019-08-12 18:31 | Electrocardiogram Report ---
Test Reason : Blood Pressure : / mmHG Vent. Rate : 097 BPM Atrial Rate : 097 BPM P-R Int : 206 ms QRS Dur : 118 ms QT Int : 392 ms P-R-T Axes : 049 -46 082 degrees QTc Int : 498 ms Sinus rhythm with Premature atrial complexes Possible Left atrial enlargement Left axis deviation Incomplete left bundle block Nonspecific T wave abnormality Prolonged QT Abnormal ECG When compared with ECG of 19-AUG-2013 06:34, Premature ventricular complexes are no longer Present Incomplete left bundle block is now Present Confirmed by Alfonzo Harper ([id number]) on 08/12/2019 6:31:13 PM Referred By: REFERRED SELF Confirmed By:Alfonzo Harper
[2019-08-12] MEDS: APIXABAN 5 MG TABLET PO SCH (20:06)
[2019-08-12] MEDS: carvediloL 12.5 MG TAB PO SCH (20:06)
[2019-08-12] MEDS: lisinopriL 20 MG TAB PO SCH (21:45)
[2019-08-12] MEDS: INSULIN GLARGINE SOLOSTAR 100 UNITS/ML 3 ML PEN SC SCH (21:46)
--- NOTE | 2019-08-12 22:34 | Electrocardiogram Report ---
Test Reason : Blood Pressure : / mmHG Vent. Rate : 070 BPM Atrial Rate : 070 BPM P-R Int : 188 ms QRS Dur : 118 ms QT Int : 426 ms P-R-T Axes : 026 -35 129 degrees QTc Int : 460 ms Normal sinus rhythm Left axis deviation Incomplete left bundle block Minimal voltage criteria for LVH, may be normal variant Nonspecific T wave abnormality Prolonged QT Abnormal ECG When compared with ECG of 11-AUG-2019 18:17, Premature atrial complexes are no longer Present Nonspecific T wave abnormality now evident in Inferior leads Confirmed by Alfonzo Harper ([id number]) on 08/12/2019 10:33:56 PM Referred By: REFERRED SELF Confirmed By:Alfonzo Harper
[2019-08-13] MEDS: INSULIN ASPART 100 UNITS/ML 3 ML PEN SC SCH ×4 (01:04→11:59)
[2019-08-13] MEDS: NITROGLYCERIN 2% OINTMENT 30GM TUBE EXT SCH ×2 (01:10→05:48)
[2019-08-13 01:45] LABS: EAG mmol/L DNR (calc); HA1C >14.0 (<5.7)
[2019-08-13] MEDS: lisinopriL 20 MG TAB PO SCH (07:50)
[2019-08-13] MEDS: ASPIRIN 81 MG ECTAB PO SCH (07:50)
[2019-08-13] MEDS: AMLODIPINE BESYLATE 5 MG TAB PO SCH (07:50)
[2019-08-13] MEDS: MAGNESIUM OXIDE 400 MG TAB PO SCH (07:51)
[2019-08-13] MEDS: HydrALAZINE TAB 50 MG TAB PO SCH (07:51)
[2019-08-13] MEDS: FUROSEMIDE 40 MG TAB PO SCH (07:51)
[2019-08-13] MEDS: carvediloL 12.5 MG TAB PO SCH (07:51)
[2019-08-13] MEDS: INSULIN GLARGINE SOLOSTAR 100 UNITS/ML 3 ML PEN SC SCH (07:52)
[2019-08-13] MEDS: APIXABAN 5 MG TABLET PO SCH (07:52)
[2019-08-13 07:53] LABS: Basophils # (auto) 0.03 K/uL (0-0.2); Basophils % (auto) 0.3 %; Eosinophils # (auto) 0.28 K/uL (0-0.5); Eosinophils % (auto) 2.9 %; Hematocrit (blood only) 43.4 % (42-52); Hemoglobin 14.7 g/dL (14.0-18.0); Immature Granulocytes # (auto) 0.03 K/uL (0.00-0.02); Immature Granulocytes % (auto) 0.3 %; Lymphocytes # (auto) 2.73 K/uL (1.2-3.4); Lymphocytes % (auto) 28.2 %; Mean Corpuscular Hemoglobin 29.8 pg (25-34); Mean Corpuscular Hgb Conc 33.9 g/dL (32-36); Mean Platelet Volume 10.6 fL (7.4-10.4); Monocytes # (auto) 0.75 K/uL (0.11-0.59); Monocytes % (auto) 7.7 %; Neutrophils # (auto) 5.87 K/uL (1.4-6.5); Neutrophils % (auto) 60.6 %; Platelet Count 276 K/uL (130-400); RDW Coefficient of Variation 15.4 % (11.5-14.5); RDW Standard Deviation 49.2 fL (36.4-46.3); Red Blood Count 4.93 M/uL (4.7-6.1); White Blood Count 9.69 K/uL (4.8-10.8)
[2019-08-13 08:22] LABS: Albumin Level 3.3 gm/dl (3.4-5.0); Calcium 9.2 mg/dl (8.5-10.1); Creatinine Clr Calc Pharmacy 120.4 ml/min; Est GFR (African American) 105.9; Est GFR (Non-African American) 91.4; Potassium 3.3 mmol/L (3.5-5.1)
[2019-08-13 08:25] LABS: Albumin Globulin Ratio 0.9 (0.9-2); Bilirubin,Total 0.5 mg/dl (0.2-1); Globulin 3.6 gm/dl (2.5-4.0); Total Protein 6.9 gm/dl (6.4-8.2)
--- NOTE | 2019-08-13 12:15 | Cardiology Progress Note ---
Date of Service August 13, 2019 Assessment & Plan (1) Hypertensive urgency: (2) Cardiomyopathy: (3) Elevated troponin: Blood pressure markedly improved with medication adjustments listed above. Continue carvedilol 12.5 mg twice daily, lisinopril twice daily, and Lasix as previously ordered. Reduce hydralazine to 75 mg 3 times daily. Recommend outpatient cardiology follow-up in 2 to 4 weeks. Repeat resting 2D transthoracic echocardiogram in 6 weeks. Outpatient stress testing indicated for further evaluation of cardiomyopathy. Subjective Patient seen and examined the bedside. Blood pressure improved. Medication changes during hospitalization include addition of amlodipine, discontinuation of metoprolol, and addition of carvedilol 12.5 mg twice daily. Patient denies chest pain or shortness of breath. Sinus rhythm on telemetry without dysrhythmias. Bedside 2D transthoracic echocardiogram demonstrates mild left ventricular systolic dysfunction. Lower extremity edema improved. Patient transition to [facility]. Review of Systems Review of Systems: All systems reviewed & are unremarkable except as noted in HPI & below Physical Exam Constitutional: well developed, well nourished and + obese Respiratory: normal respiratory effort; no respiratory distress and no labored breathing Auscultation: no crackles, no rales, no rhonchi and no wheezes Cardiovascular: Rate/Rhythm: regular rate and regular rhythm Heart Sounds: normal S1 and normal S2; no gallop, no murmur and no cardiac rub Vessels: no JVD Extremities: + edema (Trace right lower extremity edema with stasis changes) Results & Data Vital Signs (Past 12 Hours) Vital Signs Temp Pulse Pulse Pulse Resp BP BP 08/13/19 11:10 36.5 C 63 22 140/83 08/13/19 08:00 59 L 70 08/13/19 07:06 36.4 C L 56 L 20 122/78 08/13/19 05:44 123/74 08/13/19 04:17 37 C 56 L 18 111/65 08/13/19 00:21 36.9 C 62 18 92/58 L Pulse Ox 08/13/19 11:10 96 08/13/19 08:00 08/13/19 07:06 94 08/13/19 05:44 08/13/19 04:17 94 08/13/19 00:21 94 (1) Cardiomyopathy Cardiomyopathy type: unspecified Qualified Code(s): I42.9 - Cardiomyopathy, unspecified
[2019-08-13] MEDS ORDERED: POTASSIUM CHLORIDE 20 MEQ TABCR PO STA (12:31)
--- NOTE | 2019-08-13 13:01 | Pharmacy Report ---
Pharmacy Glycemic Short Note 2 - Date of Service August 13, 2019 - Glycemic Short BSG Results (Last 24 hours): 08/12/19 08/12/19 08/12/19 13:45 16:17 16:35 Glucose 160 H POC Glucose 191 H 173 H 08/12/19 08/13/19 08/13/19 20:49 00:50 04:15 Glucose POC Glucose 178 H 137 H 158 H 08/13/19 08/13/19 08/13/19 07:03 07:28 11:34 Glucose 185 H POC Glucose 191 H 135 H OUTPATIENT ANTIDIABETIC REGIMEN: * metformin 500mg PO BID * A1c = 18.1% per recent out-pt testing ASSESSMENT: 08/13 * BSGs much better controlled at this time * Yesterday patient received 76 units SQ (45 units basal + 31 rapid acting, however only 1 meal consumed) * Fasting BSG 191 this AM with 45 units of basal + 3 units of correctional insulin given overnight * Novolog has performed well with current CF and CR doses * I would anticipate this patient to require ~60-70 units of insulin per day to achieve glycemic targets 08/12 * Type 2 diabetic, poorly controlled per A1c, admitted for right lower extremity superficial thrombosis and hypertensive urgency * BSGs initially in upper 300s however now in upper 200's this AM. No AG acidosis present on labs. * Will initiate basal/bolus regimen based upon pt's weight and moderate stress level - will give larger Lantus dose upfront given current BSG elevation * Pt will require discharge on insulin therapy, at a minimum basal insulin + (either GLP-1 agonist or meal-time prandial insulin) + metformin PLAN FOR INPATIENT GLYCEMIC CONTROL: * Hold outpatient oral diabetes medications (metformin) * Basal insulin * Lantus BID per the following scale * 0 units if BSG less than 110 * 15 units if BSG 110-180 * 20 units if BSG above 180 * Bolus insulin * NovoLog per scale ACHS and at 0200 tonight * Goal Range: Low 110 mg/dL - High 140 mg/dL * Correction Factor: 20 mg/dL/unit * Nutritional / Prandial insulin per carb ratio of 1 unit per 6 grams CHO consumed PLAN FOR DISCHARGE: * would anticipate pt to require ~60-70 units per day. ideally basal + prandial insulin would be provided if patient is able. may consider one of the following regimens: * Option 1: Lantus 30 units daily + Novolog 10 units with each meal + sliding scale (can be provided at request) * Option 2: 70/30 insulin 40 units w/ breakfast + 20 units with dinner
--- NOTE | 2019-08-13 14:32 | Hospitalist Progress Note ---
Date of Service August 13, 2019 Assessment & Plan (1) Hypertensive emergency: -59-year-old patient admitted from primary care physician's office due to uncontrolled hypertension and saphenous vein thrombosis. -as per cardiology 08/12/2019 evaluation: discontinuation of metoprolol in favor of carvedilol, 12.5 mg twice daily; then cardiology added scheduled topical nitrates to improve blood pressure control acutely -off topical nitrates by 08/13/2019; a combination of furosemide, lisinopril, and hydralazine and amlodipine also controlling the blood pressures -discharge with amlodipine 5 mg daily, carvedilol 12.5 mg twice a day, Hydralazine 75 mg three times a day, lisinopril 20 mg twice a day for blood pressure control (2) Elevated troponin: -as per starch cooker "Mildly elevated troponin likely secondary to hy pertensive urgency. Patient without anginal symptoms or ECG evidence of evolving myocardial ischemia/infarction" (3) Cardiomyopathy: -echocardiogram on this admission of ejection fraction 45%; as per Dr. Evans of cardiology these measurements are improvements as history of non- ischemic cardiomyopathy with ejection fraction as low as 25% in 2014 -appointments 08/17/2019 11:20 AM Provider Prachi Osborne MD Department Internal Medicine [facility] 08/26/2019 10:30 AM Provider Jeronimo Evans DO Department Cardiology, [facility] (Cardiology also recommended that from discharge date of 08/13/2019 for Repeat resting 2D transthoracic echocardiogram in 6 weeks and Outpatient stress testing indicated for further evaluation of cardiomyopathy) (4) Type 2 diabetes mellitus: Type 2 diabetes mellitus with hyperglycemia without terminal superintendent current of insulin -outpatient hemoglobin A1c of 18.1 on 08/11/2019 -discussed with patient with facility security officer that home dose oral metformin not sufficient -pharmacy glycemic control managing with subcutaneous insulin. patient will need to be on Insulin therapy on discharge -unintentional weight loss at home may be from diabetes mellitus Discharge insulin regimen: Lantus 30 units daily + Novolog 10 units with each meal (if Lantus and Novolog are no affordable choices that alternative recommendation is 70/30 insulin 40 units w/ breakfast + 20 units with dinner) Patient will need to follow with family medical doctor whether any sliding scale insulin needed PRESCRIPTIONS given: 1) Accu-Chek Guide Me test strips 2) Accu-Chek FastClix lancets (drums) 3) BD Soledad Ultra-fine pen needles - 4mm (5/32") x 32G (0.23mm) (5) DVT (deep venous thrombosis): superficial vein thrombosis is being treated as a deep venous thrombosis -outpatient 08/11/2019 ultrasound of lower extremity: No deep venous thrombosis detected. Superficial thrombophlebitis is seen in the right greater saphenous vein approaching but not extending into the confluence with the right common femoral vein. -given this potential progression to right common femoral vein, patient is treated as if there is typical deep vein thrombosis -CTA on 08/11/2019: 1. There is no evidence of pulmonary embolus in the main, lobar, or segmental pulmonary arteries. 2. Marked cardiomegaly with evidence of pulmonary artery hypertension. 3. There is aneurysmal dilatation of the ascending thoracic aorta which measures up to 4.5 cm in diameter. Nonemergent surgical follow-up is recommended. 4. There is no airspace consolidation or pleural effusion -patient was started on IV heparin on admission. plans to transition to Eliquis starting on 9 PM of 08/12/2019. Eliquis as 10 mg twice a day for 7 days to be completed on 08/19/2019 and then 5 mg twice a day. minimal anticoagulation of 3 m onths. patient denies provoking factors such as trauma or immobility; patient will need workup of thrombosis risk factors as outpatient; unintentional weight loss at home may be from diabetes mellitus but patient may benefit from colonoscopy as outpatient. Ascending thoracic aortic aneurysm -4.[address] scan -control blood pressures as above -may need nonemergent evaluation with Vascular Surgery as outpatient Admission and Anticipated Discharge Date Admission Date: August 11, 2019 Subjective No chest pain. no shortness of breath. no dizziness. no headache. no abdomen pain. no vomiting. blood pressure controlled. glucose levels are reasonable Review of Systems Review of Systems: All systems reviewed & are unremarkable except as noted in HPI & below Physical Exam Constitutional: comfortable Eyes: PERRL, conjunctivae normal, anicteric sclerae EOM intact bilaterally ENMT: external ear and nose normal, oropharynx normal Neck: normal visual inspection Respiratory: normal respiratory effort, lungs clear to auscultation Cardiovascular: Rate/Rhythm: + bradycardic Gastrointestinal (Abdomen): normal bowel sounds, soft, nontender, no hepatosplenomegaly Musculoskeletal: Head/Neck/Chest: normocephalic and head atraumatic Neurologic: PERRL, EOMI, accommodation nl, no face palsy, no dysarthria CN's II-XI intact bilaterally Psychiatric: A+Ox3, euthymic affect Results & Data ([facility]) Vital Signs (Past 12 Hours) Vital Signs Temp Pulse Pulse Resp BP Pulse Ox 08/13/19 11:10 36.5 C 63 22 140/83 96 08/13/19 08:00 59 L 70 08/13/19 07:06 36.4 C L 56 L 20 122/78 94 08/13/19 05:44 123/74 08/13/19 04:17 37 C 56 L 18 111/65 94 (1) Cardiomyopathy Cardiomyopathy type: unspecified Qualified Code(s): I42.9 - Cardiomyopathy, unspecified
--- NOTE | 2019-08-13 14:48 | Discharge Summary ---
Date of Service August 13, 2019 Admission HPI Per Admitting Provider CHIEF COMPLAINT: Hypertensive urgency, right lower extremity venous thrombosis. HISTORY OF PRESENT ILLNESS: This is a 59-year-old male with past medical history significant for diabetes, dilated cardiomyopathy, hypertension, morbid obesity, who presents because of increased right lower extremity swelling and also uncontrolled blood pressure. The patient states he ran out of medication 2 weeks ago and was not taking his blood pressure medications since last 2 weeks and he started taking them last Friday and also his right lower extremity swelling was worsened than before, he thinks because of not taking his Lasix, but outpatient venous Doppler showed superficial thrombosis in the right greater saphenous vein approaching to the right common femoral vein and his blood pressure was also still uncontrolled in 200s, so he was referred to the ER. The patient denies any complaints. He denies any chest pain, no shortness of breath, no cough, no fever, no chills, no headache, no blurred visions, no earache, no runny nose, no sore throat, no difficulty swallowing. He says the last 3-4 months, he lost about 20-25 pounds without trying to lose weight. Otherwise, he says he is ambulating fine. He has some trouble climbing steps because of his knee pain. He does not sleep well because he has to go to bathroom frequently in the night. Normal bowel and bladder movements. No blood in stools or black stools. No hematuria, no burning micturition. Currently resting comfortably, but blood pressure is running high. He received labetalol in the ER and he was started on IV heparin. ALLERGIES: No known drug allergies. PAST MEDICAL HISTORY: As mentioned above. PAST SURGICAL HISTORY: Lumbar disc surgery. MEDICATIONS: The patient is on aspirin 81 mg p.o. daily, Lasix 40 mg p.o. daily p.r.n., hydralazine 100 mg p.o. t.i.d., lisinopril 10 mg p.o. b.i.d., Glucophage 500 mg p.o. b.i.d., Toprol-XL 75 mg p.o. b.i.d., nitroglycerin 0.4 sublingual p.r.n., supposed to be on Hytrin 5 mg daily, but patient does not remember about it. FAMILY HISTORY: Significant for mother had diabetes. Father had COPD, hypertension. SOCIAL HISTORY: . No smoking, no alcohol, no drug use. REVIEW OF SYSTEMS: As per HPI. Rest of the review of systems negative. Admission Exam Per Admitting Provider GENERAL: The patient is obese, not in acute distress. VITAL SIGNS: Temperature 36.8, pulse 91, respiratory rate 18, blood pressure 221/110, oxygen 98% on room air. HEENT: No pallor, no icterus. Pupils equal, round, and reactive to light. NECK: No JVD, no neck masses, no carotid bruits. CARDIOVASCULAR: S1, S2 heard, regular rate and rhythm, no murmur, no gallop. RESPIRATORY SYSTEM: Normal AP diameter. No accessory muscle use. No wheezing, no crackles. ABDOMEN: Soft, bowel sounds present, nontender. No distention. CENTRAL NERVOUS SYSTEM: Cranial nerves II-XII grossly intact. Nonfocal. EXTREMITIES: Right lower extremity swollen. Chronic skin changes seen. No erythema, no tenderness on palpation. Principal Diagnosis Hypertensive emergency, Elevated troponins, Type 2 diabetes mellitus with hyperglycemia without fifth hand current of insulin, superficial vein thrombosis is being treated as a deep venous thrombosis,Ascending thoracic aortic aneurysm Discharge Exam Constitutional comfortable Eyes PERRL, conjunctivae normal, anicteric sclerae EOM intact bilaterally ENMT external ear and nose normal, oropharynx normal Neck normal visual inspection Respiratory normal respiratory effort, lungs clear to auscultation Cardiovascular Rate/Rhythm: + bradycardic Gastrointestinal (Abdomen) normal bowel sounds, soft, nontender, no hepatosplenomegaly Musculoskeletal Head/Neck/Chest: normocephalic and head atraumatic Neurologic PERRL, EOMI, accommodation nl, no face palsy, no dysarthria CN's II-XI intact bilaterally Psychiatric A+Ox3, euthymic affect Discharge Data Allergies Allergy/AdvReac Type Severity Reaction Status Date / Time No Known Allergies Allergy Unverified 08/11/19 18:43 Consultations 08/11/19 21:30 Consult Case Management - Discharge Planning Routine 08/12/19 08:00 Consult Cardiology Routine Ordered Studies 08/11/19 17:57 CT angio chest PE protocol Stat Hospital Course (1) Hypertensive emergency: -59-year-old patient admitted from primary care physician's office due to uncontrolled hypertension and saphenous vein thrombosis. -as per cardiology 08/12/2019 evaluation: discontinuation of metoprolol in favor of carvedilol, 12.5 mg twice daily; then cardiology added scheduled topical nitrates to improve blood pressure control acutely -off topical nitrates by 08/13/2019; a combination of furosemide, lisinopril, and hydralazine and amlodipine also controlling the blood pressures -discharge with amlodipine 5 mg daily, carvedilol 12.5 mg twice a day, Hydralazine 75 mg three times a day, lisinopril 20 mg twice a day for blood pressure control (2) Elevated troponin: -as per electrical & instrumentation supervisor "Mildly elevated troponin likely secondary to hypertensive urgency. Patient without anginal symptoms or ECG evidence of evolving myocardial ischemia/infarction" (3) Cardiomyopathy: -echocardiogram on this admission of ejection fraction 45%; as per Dr. Evans of cardiology these measurements are improvements as history of non- ischemic cardiomyopathy with ejection fraction as low as 25% in 2014 -appointments 08/17/2019 11:20 AM Provider Prachi Osborne MD Department Internal Medicine [facility] 08/26/2019 10:30 AM Provider Jeronimo Evans DO Department Cardiology, [facility] (Cardiology also recommended that from discharge date of 08/13/2019 for Repeat resting 2D transthoracic echocardiogram in 6 weeks and Outpatient stress testing indicated for further evaluation of cardiomyopathy) (4) Type 2 diabetes mellitus: Type 2 diabetes mellitus with hyperglycemia without senior living current of insulin -outpatient hemoglobin A1c of 18.1 on 08/11/2019 -discussed with patient with clinical abstractor that home dose oral metformin not sufficient -pharmacy glycemic control managing with subcutaneous insulin. patient will need to be on Insulin therapy on discharge -unintentional weight loss at home may be from diabetes mellitus Discharge insulin regimen: Lantus 30 units daily + Novolog 10 units with each meal (if Lantus and Novolog are no affordable choices that alternative recommendation is 70/30 insulin 40 units w/ breakfast + 20 units with dinner) Patient will need to follow with family medical doctor whether any sliding scale insulin needed PRESCRIPTIONS given: 1) Accu-Chek Guide Me test strips 2) Accu-Chek FastClix lancets (drums) 3) BD Soledad Ultra-fine pen needles - 4mm (5/32") x 32G (0.23mm) (5) DVT (deep venous thrombosis): superficial vein thrombosis is being treated as a deep venous thrombosis -outpatient 08/11/2019 ultrasound of lower extremity: No deep venous thrombosis detected. Superficial thrombophlebitis is seen in the right greater saphenous vein approaching but not extending into the confluence with the right common femoral vein. -given this potential progression to right common femoral vein, patient is treated as if there is typical deep vein thrombosis -CTA on 08/11/2019: 1. There is no evidence of pulmonary embolus in the main, lobar, or segmental pulmonary arteries. 2. Marked cardiomegaly with evidence of pulmonary artery hypertension. 3. There is aneurysmal dilatation of the ascending thoracic aorta which measures up to 4.5 cm in diameter. Nonemergent surgical follow-up is recommended. 4. There is no airspace consolidation or pleural effusion -patient was started on IV heparin on admission. plans to transition to Eliquis starting on 9 PM of 08/12/2019. Eliquis as 10 mg twice a day for 7 days to be completed on 08/19/2019 and then 5 mg twice a day. minimal anticoagulation of 3 months. patient denies provoking factors such as trauma or immobility; patient will need workup of thrombosis risk factors as outpatient; unintentional weight loss at home may be from diabetes mellitus but patient may benefit from colonoscopy as outpatient. Ascending thoracic aortic aneurysm -4.[address] scan -control blood pressures as above -may need nonemergent evaluation with Vascular Surgery as outpatient Total Time Total Time Spent Total Time Spent (In Minutes): 40 minutes Total Time Includes: Examination of the Patient, Discharge Planning, Medication Reconciliation and Communication With Other Providers Discharge Plan Discharge Items Patient Disposition: Home - Self-Care Reason For Visit: HYPERTENSIVE URGENCY,LOWER EXTREMITY VENOUS THROMB Discharge Diagnosis: Hypertensive emergency, Elevated troponins, Type 2 diabetes mellitus with hyperglycemia without fifth hand current of insulin, superficial vein thrombosis is being treated as a deep venous thrombosis,Ascending thoracic aortic aneurysm Condition on Discharge: Good Activity: Resume your previous activity Non-emergency contact: Primary Care Provider and Front Office Associate Call non-emergency contact if: you have any medication questions Follow-up/Referrals: PCP,NO [Primary Care Provider] - Diet: Carb Consistent or DM2 and Heart Healthy Addtl Attending Provider Instructions: discharge appointments 08/17/2019 11:20 AM Provider Prachi Osborne MD Department Internal Medicine [facility] 08/26/2019 10:30 AM Provider Jeronimo Evans DO Department Cardiology, [facility] (Cardiology also recommended that from discharge date of 08/13/2019 for Repeat resting 2D transthoracic echocardiogram in 6 weeks and Outpatient stress testing indicated for further evaluation of cardiomyopathy) Discharge insulin regimen: Lantus 30 units daily + Novolog 10 units with each meal (if Lantus and Novolog are no affordable choices that alternative recommendation is 70/30 insulin 40 units w/ breakfast + 20 units with dinner) Patient will need to follow with family medical doctor whether any sliding scale insulin needed Eliquis as 10 mg twice a day for 7 days to be completed on 08/19/2019 and then 5 mg twice a day. minimal anticoagulation of 3 months. patient denies provoking factors such as trauma or immobility; patient will need workup of thrombosis risk factors as outpatient; unintentional weight loss at home may be from diabetes mellitus but patient may benefit from colonoscopy as outpatient amlodipine 5 mg daily, carvedilol 12.5 mg twice a day, Hydralazine 75 mg three times a day, lisinopril 20 mg twice a day for blood pressure control Discharge medications sent electronically to [facility] [address] [place] [address], [place] [address] Ascending thoracic aortic aneurysm -4.[address] scan -control blood pressures as above -may need nonemergent evaluation with Vascular Surgery as outpatient Addtl Analytical Chemist Provider Instructions: PRESCRIPTIONS given: 1) Accu-Chek Guide Me test strips 2) Accu-Chek FastClix lancets (drums) 3) BD Soledad Ultra-fine pen needles - 4mm (5/32") x 32G (0.23mm) Pending Studies at Discharge: No Stand-Alone Forms: My [employer], Smoking Cessation Medications and DC Order Prescriptions: New Eliquis 5 mg (74 tabs) tablets,dose pack 10 mg PO BID 30 Days Qty: 74 RF: 0 lisinopril 20 mg Tablet 20 mg PO BID 30 Days Qty: 60 RF: 0 hydralazine 25 mg Tablet 75 mg PO TID 30 Days Qty: 270 RF: 0 amlodipine 5 mg tablet 5 mg PO DAILY 30 Days Qty: 30 RF: 0 carvedilol 12.5 mg Tablet 12.5 mg PO BID 30 Days Qty: 60 RF: 0 Lantus Solostar U-100 Insulin 100 unit/mL (3 mL) Insulin Pen 30 units SC DAILY 30 Days Qty: 15 RF: 0 insulin aspart U-100 100 unit/mL (3 mL) insulin pen 10 units SQ ACHS 30 Days Qty: 15 RF: 0 Continued furosemide [Lasix] 40 mg tablet 40 mg PO DAILY RF: 0 aspirin [Aspir-81] 81 mg Tablet,Delayed Release (Dr/Ec) 81 mg PO DAILY RF: 0 nitroglycerin [Nitrostat] 0.4 mg Tablet, Sublingual 0.4 mg sublingual UD PRN (Reason: Chest Pain) RF: 0 Discontinued furosemide [Lasix] 40 mg tablet 40 mg PO DAILY PRN (Reason: retaining fluid) RF: 0 metformin [Glucophage] 500 mg tablet 500 mg PO BID RF: 0 metoprolol succinate [Toprol XL] 50 mg tablet extended release 24 hr 75 mg PO BID RF: 0 hydralazine 100 mg tablet 100 mg PO TID RF: 0 lisinopril 10 mg tablet 10 mg PO BID RF: 0 Discharge Orders: Discharge Order (Routine); Ordered 08/13/19 Ordered By: Dev Barton/Other Patient Handouts: Diabetes Guest Experience Representative Complications, Diabetes Resources, Diabetes Type 2 Coping, Blood Sugar Check, Diabetes Healthy Meals, Understanding Carbohydrates, Diabetes Exercise Benefits, Diabetes Exercise Get Started, Diabetes Living Life, DVT Dc, Diabetes Manage A1C Test Admission Data Admit Date/Time: 08/11/19 20:00 Attending Provider: Dev Bledsoe Admit Provider: Chago Morgan Primary Care Provider: PCP,NO Other Providers: Scott Fischer ; Yaya Rodriguez ; Milind Sheets ; Jeronimo Evans ; Elliott Moran ; Jorge Polanco ; Jada Pedraza ; Aurora Kelly ; Giuseppe Perera Other Interventions: Discharge Summary Assessment (RN) Last Done: 08/13/19 14:45
--- NOTE | 2019-08-13 21:52 | Electrocardiogram Report ---
Test Reason : Blood Pressure : / mmHG Vent. Rate : 058 BPM Atrial Rate : 058 BPM P-R Int : 186 ms QRS Dur : 118 ms QT Int : 450 ms P-R-T Axes : 044 085 256 degrees QTc Int : 441 ms Sinus bradycardia Incomplete left bundle block Abnormal ECG When compared with ECG of 12-AUG-2019 06:21, QRS axis Shifted right T wave inversion now evident in Inferolateral leads Confirmed by Alfonzo Harper ([id number]) on 08/13/2019 9:51:50 PM Referred By: REFERRED SELF Confirmed By:Alfonzo Harper
== END 2019-08-13 16:04 | disposition home or self-care (01) | DRG 305 ==
LOC: ED 17:28 → 2E 20:00

== ENCOUNTER 2020-12-26 11:31 | Inpatient (IN) ==
--- NOTE | 2020-12-26 13:23 | XRay Report ---
XR chest 1V portable HISTORY: Atypical Chest Pain COMPARISON: Chest 08/11/2019. FINDINGS: No pneumothorax. No pleural effusions. Moderate enlargement of the cardiac silhouette which has slightly progressed. There is progressive interstitial/vascular thickening consistent with mild pulmonary edema. No new focal lung consolidations identified. IMPRESSION: Interval progression of the cardiomegaly and mild interstitial pulmonary edema. ACT 112: Negative or not required by law. Electronically signed by: Jose Walter M.D. 12/26/2020 1:21 PM
[2020-12-26 13:24] LABS: Basophils # (auto) 0.04 K/uL (0-0.2); Basophils % (auto) 0.4 %; Eosinophils # (auto) 0.22 K/uL (0-0.5); Eosinophils % (auto) 2.2 %; Hemoglobin 14.2 g/dL (14.0-18.0); Immature Granulocytes # (auto) 0.02 K/uL (0.00-0.02); Immature Granulocytes % (auto) 0.2 %; Lymphocytes # (auto) 1.91 K/uL (1.2-3.4); Lymphocytes % (auto) 19.1 %; Mean Corpuscular Hemoglobin 30.2 pg (25-34); Mean Corpuscular Volume 91.5 fL (80-100); Mean Platelet Volume 10.2 fL (7.4-10.4); Monocytes # (auto) 0.95 K/uL (0.11-0.59); Monocytes % (auto) 9.5 %; Neutrophils # (auto) 6.84 K/uL (1.4-6.5); Neutrophils % (auto) 68.6 %; Platelet Count 299 K/uL (130-400); RDW Standard Deviation 53.5 fL (36.4-46.3); White Blood Count 9.98 K/uL (4.8-10.8)
--- NOTE | 2020-12-26 14:08 | Emergency Department Note ---
Impression & Plan New onset atrial fibrillation, Uncontrolled hypertension, Chronic systolic heart failure, Hypervolemia ED Provider Note NAME: AUTUMN HUYNH AGE: 60 SEX: M ARRIVES VIA: Walk-In INFORMANT: Patient, ED PROVIDER(S): Gavino Jewell MD CHIEF COMPLAINT: RLE swelling PLAN: Disposition: Admit MEDICAL DECISION MAKING: The patient is a pleasant 60 y/o gentleman with a pmhx of DM2, nonischemic CM, HTN, obesity, DVT on Eliquis, chronic RLE edema who presents to the emergency department for evaluation of worsening RLQ swelling of his right lower leg over the past year. He further reports progressive SOB with minimal exertion. He reports he has not follow up with his outpatient providers over the past year due to Covid-19. He denies cough, congestion, CP, n/v/d, urinary symptoms. On arrival the patient is in NAD, AF, HR 120s with BP 170s/120s and otherwise stable. He appears hypervolemic on exam. RLE with 4+ pitting edema and LLE with 2+ edema. Distal PMS intact. EKG demonstrates no onset Afib without overt acute ischemia. CXR with interval progression of the cardiomegaly and mild interstitial pulmonary edema. WBC, H/H, platelets wnl. Chemistry without acidosis. Electrolytes unremarkable. LFTs without significant abnormality. Troponin 0.022, wnl. BNP 1800 without prior for comparison. Covid-19 PCR was negative. RLE US negative for DVT but shows suspected chronic superficial venous thrombus of greater saphenous v. Findings were reviewed with the patient. He denies prior history of Afib. Given new afib in the setting of his uncontrolled HTN and hypervolemia, reasonable to admit the patient for further management. Patient agrees with plan for admission. Patient was ordered for his home medications, which were due including hydralazine, Lisinopril, Cavedilol, in addition to IV Lasix. Case was discussed with [place] [facility] PAC, with Dr. Bonnie Dickey hospitalist who will evaluate the patient for admission. Triage Nursing notes reviewed and agree them. Prior medical records reviewed Vital Signs: reviewed and remarkable for tachycardia. Differential diagnosis: DVT, musculoskeletal, infection, joint effusion, trauma, lymphedema, idiopathic, CHF, as well as other pathologies. ER treatment provided: See below. Diagnostics interpreted by me: ECG: Atrial fibrillation with rapid ventricular response, PVCs, 124 bpm, no overt ST elevation or depression. Cardiac Monitoring: An order for continuous cardiac monitoring was placed and de monstrated Atrial fibrillation with rapid ventricular response, PVCs, 124 bpm. Laboratory studies: See below Imaging studies: See below Consultation(s): Case was discussed with [facility] PAC, with Dr. Bonnie Dickey hospitalist who will evaluate the patient for admission. HPI: The patient is a pleasant 60 y/o gentleman with a pmhx of DM2, nonischemic CM, HTN, obesity, DVT on Eliquis, chronic RLE edema who presents to the emergency department for evaluation of worsening RLQ swelling of his right lower leg over the past year. He further reports progressive SOB with minimal ex ertion. He reports he has not follow up with his outpatient providers over the past year due to Covid-19. He denies cough, congestion, CP, n/v/d, urinary symptoms. ROS: See above HPI for pertinent positives & negatives. A total of 10 systems reviewed and were otherwise negative. PAST MEDICAL HISTORY:See Below PAST SURGICAL HISTORY:See Below FAMILY HISTORY:See Below SOCIAL HISTORY:See Below HOME MEDICATIONS:See Below ALLERGIES:See Below VITALS:See Below PHYSICAL EXAMINATION: GENERAL: Awake, alert, well-appearing, in no distress, BMI 45.8. HENT: Normocephalic, atraumatic. Oropharynx unremarkable. EYES: Normal conjunctiva. Sclera non-icteric. NECK: Supple. No nuchal rigidity. FROM. No JVD. RESPIRATORY: Clear to auscultation. CARDIAC: Tachycardic rate, irregular rhythm. Extremities warm and well perfused. Pulses equal. ABDOMEN: Soft, non-distended. No tenderness to palpation. No rebound or guarding. No masses. RECTAL: Deferred. MUSCULOSKELETAL: Chest examination reveals no tenderness. The back is symmetrical on inspection without obvious abnormality. There is no CVA tenderness to palpation. No joint edema. LOWER EXTREMITIES: Calves are non-tender. No discoloration. RLE with 4+ pitting edema and LLE with 2+ edema. Distal PMS intact. NEURO: Normal sensorium. No sensory or motor deficits noted. SKIN: No rash or jaundice noted. Gavino Jewell MD Past Med/Surg History Medical History Chronic deep vein thrombosis (DVT) Chronic systolic heart failure Dilated cardiomyopathy Dyslipidemia Hypertension Morbid obesity Thoracic aortic aneurysm Type 2 diabetes mellitus Uncontrolled hypertension Surgical History History of lumbar surgery Family History Other COPD (chronic obstructive pulmonary disease) Diabetes Hypertension Social History (Updated 12/26/20 @ 19:46 by Kirstin Hassan PA-C) Smoking Status: Never smoker Second Hand Exposure: No; Hx Alcohol Use: Yes Alcohol type: beer Hx Substance Use: No Preferred Language: Spanish Communication Ability: Effective 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 Beliefs That Will Affect Care: None Current Living Situation: Spouse Other Information That Helps Us Care for You: No Feels Safe at Home: Yes Safety Concerns: Feels Safe At This Time Assistive Devices: Denture - Upper Allergies Allergies Allergy/AdvReac Type Severity Reaction Status Date / Time No Known Allergies Allergy Unverified 12/26/20 14:38 Home Meds Home Medications Medication Instructions Recorded Confirmed furosemide [Lasix] 40 - 60 mg PO DAILY 08/11/19 12/26/20 amlodipine [Norvasc] 10 mg PO QAM 12/26/20 12/26/20 apixaban [Eliquis] 5 mg PO BID 12/26/20 12/26/20 aspirin [Aspirin Childrens] 81 mg PO QAM 12/26/20 12/26/20 atorvastatin [Lipitor] 40 mg PO QAM 12/26/20 12/26/20 carvedilol [Coreg] 25 mg PO BID 12/26/20 12/26/20 hydralazine 75 mg PO TID 12/26/20 12/26/20 insulin glargine [Lantus Solostar 30 unit SUBCUT QAM 12/26/20 12/26/20 U-100 Insulin] insulin lispro [Humalog KwikPen 10 unit SUBCUT BIDM 12/26/20 12/26/20 Insulin] lisinopril [Prinivil] 20 mg PO BID 12/26/20 12/26/20 Results & Data (ED) Vital Signs Vital Signs - 24 hr 12/26/20 11:34 12/26/20 13:10 12/26/20 15:00 Temperature 36.8 C Temperature Source Temporal Artery Scan Pulse Rate 124 H 127 H 113 H Pulse Rate from SpO2 Sensor 123 H 122 H Respiratory Rate 18 21 20 Respiratory Effort / Characteristics Non-Labored Spontaneous Respiratory Depth Normal Respiratory Pattern Regular Blood Pressure 170/122 H 175/123 H Blood Pressure Mean 138 140 Blood Pressure Position Sitting Pulse Oximetry 94 91 93 Oxygen Delivery Method Room Air Sepsis Recent Fever Within 48 Hours No Sepsis New/Unexplained Change in Mental Status N/A Sepsis Action Taken by Nursing No Action Required 12/26/20 16:46 Temperature Temperature Source Pulse Rate 122 H Pulse Rate from SpO2 Sensor 137 H Respiratory Rate 31 H Respiratory Effort / Characteristics Respiratory Depth Respiratory Pattern Blood Pressure 176/143 H Blood Pressure Mean 154 Blood Pressure Position Pulse Oximetry 94 Oxygen Delivery Method Sepsis Recent Fever Within 48 Hours Sepsis New/Unexplained Change in Mental Status Sepsis Action Taken by Nursing Laboratory Data Attestation: I reviewed the patient's lab results. Result diagrams: 12/26/20 13:10 12/26/20 15:22 Lab Results 12/26/20 12/26/20 12/26/20 Range/Units 13:10 13:10 13:54 WBC 9.98 (4.8-10.8) K/uL RBC 4.70 (4.7-6.1) M/uL Hgb 14.2 (14.0-18.0) g/dL Hct 43.0 (42-52) % MCV 91.5 (80-100) fL MCH 30.2 (25-34) pg MCHC 33.0 (32-36) g/dL RDW Std Deviation 53.5 H (36.4-46.3) fL RDW Coeff of Kerline 16.0 H (11.5-14.5) % Plt Count 299 (130-400) K/uL MPV 10.2 (7.4-10.4) fL Immature Gran % (Auto) 0.2 % Neut % (Auto) 68.6 % Lymph % (Auto) 19.1 % [place] % (Auto) 9.5 % Eos % (Auto) 2.2 % Baso % (Auto) 0.4 % Neut # (Auto) 6.84 H (1.4-6.5) K/uL Lymph # (Auto) 1.91 (1.2-3.4) K/uL [place] # (Auto) 0.95 H (0.11-0.59) K/uL Eos # (Auto) 0.22 (0-0.5) K/uL Baso # (Auto) 0.04 (0-0.2) K/uL Immature Gran # (Auto) 0.02 (0.00-0.02) K/uL Sodium 136 (136-145) mmol/L Potassium (3.5-5.1) mmol/L Chloride 107 (98-107) mmol/L Carbon Dioxide 25 (21-32) mmol/L Anion Gap 5.0 (3-11) BUN 14 (7-18) mg/dl Creatinine 0.73 (0.6-1.4) mg/dl Est Cr Clr Drug Dosing 174.5 ml/min Est GFR ( Amer) 117.7 ml/min Est GFR (Non-Af Amer) 101.5 ml/min BUN/Creatinine Ratio 19.3 (10-20) Glucose 118 H (70-99) mg/dl Calcium 8.9 (8.5-10.1) mg/dl Phosphorus 3.3 (2.5-4.9) mg/dl Magnesium (1.8-2.4) mg/dl Total Bilirubin 1.1 H (0.2-1) mg/dl AST (15-37) U/L ALT 30 (12-78) U/L Alkaline Phosphatase 84 (45-117) U/L Troponin I 0.022 (0-0.045) ng/ml NT-Pro-B Natriuret Pep 1842 H (0-900) pg/ml Total Protein 7.5 (6.4-8.2) gm/dl Albumin 3.7 (3.4-5.0) gm/dl Globulin 3.8 (2.5-4.0) gm/dl Albumin/Globulin Ratio 1.0 (0.9-2) Lipase 129 (73-393) U/L COVID-19 Eval Order Covid19 at [facility] SARS-CoV-2 (PCR) (Negative) 12/26/20 12/26/20 Range/Units 13:54 15:22 WBC (4.8-10.8) K/uL RBC (4.7-6.1) M/uL Hgb (14.0-18.0) g/dL Hct (42-52) % MCV (80-100) fL MCH (25-34) pg MCHC (32-36) g/dL RDW Std Deviation (36.4-46.3) fL RDW Coeff of Kerline (11.5-14.5) % Plt Count (130-400) K/uL MPV (7.4-10.4) fL Immature Gran % (Auto) % Neut % (Auto) % Lymph % (Auto) % [place] % (Auto) % Eos % (Auto) % Baso % (Auto) % Neut # (Auto) (1.4-6.5) K/uL Lymph # (Auto) (1.2-3.4) K/uL [place] # (Auto) (0.11-0.59) K/uL Eos # (Auto) (0-0.5) K/uL Baso # (Auto) (0-0.2) K/uL Immature Gran # (Auto) (0.00-0.02) K/uL Sodium (136-145) mmol/L Potassium 3.9 (3.5-5.1) mmol/L Chloride (98-107) mmol/L Carbon Dioxide (21-32) mmol/L Anion Gap (3-11) BUN (7-18) mg/dl Creatinine (0.6-1.4) mg/dl Est Cr Clr Drug Dosing ml/min Est GFR ( Amer) ml/min Est GFR (Non-Af Amer) ml/min BUN/Creatinine Ratio (10-20) Glucose (70-99) mg/dl Calcium (8.5-10.1) mg/dl Phosphorus (2.5-4.9) mg/dl Magnesium 2.2 (1.8-2.4) mg/dl Total Bilirubin (0.2-1) mg/dl AST 18 (15-37) U/L ALT (12-78) U/L Alkaline Phosphatase (45-117) U/L Troponin I (0-0.045) ng/ml NT-Pro-B Natriuret Pep (0-900) pg/ml Total Protein (6.4-8.2) gm/dl Albumin (3.4-5.0) gm/dl Globulin (2.5-4.0) gm/dl Albumin/Globulin Ratio (0.9-2) Lipase (73-393) U/L COVID-19 Eval Order SARS-CoV-2 (PCR) NEGATIVE (Negative) Administered Medications Apixaban (Apixaban 5 Mg Tablet) 5 mg PO BID ELISA Stop: 01/25/21 20:59 Last Admin: 12/26/20 20:55 Dose: 5 mg Documented by: [id number] Carvedilol (Carvedilol 25 Mg Tab) 25 mg PO BID ELISA Stop: 01/25/21 20:59 Last Admin: 12/26/20 20:56 Dose: 25 mg Documented by: [id number] Diltiazem HCl 125 mg/ Dextrose 125 mls @ 5 mls/hr IV .Q24H ON LICENSE OF [facility]; Protocol Stop: 01/25/21 18:59 Last Admin: 12/26/20 21:57 Dose: 5 mg/hr, 5 mls/hr Documented by: [id number] Cosigned by: [id number] Furosemide 40 mg/ Syringe 4 mls @ 4 mls/min IV BID17 ELISA Stop: 01/25/21 20:59 Last Admin: 12/26/20 20:56 Dose: 4 mls/min Documented by: [id number] Insulin Aspart (Insulin Aspart 100 Units/Ml 3 Ml Pen) 0 units SC ACHS ELISA Stop: 01/25/21 20:59 Last Admin: 12/26/20 21:56 Dose: Not Given Documented by: [id number] Insulin Glargine (Insulin Glargine Solostar 100 Units/Ml 3 Ml Pen) 0 units SC BID ON LICENSE OF [facility]; Protocol Stop: 01/25/21 20:59 Last Admin: 12/26/20 21:57 Dose: 10 units Documented by: [id number] Cosigned by: [id number] Lisinopril (Lisinopril 20 Mg Tab) 20 mg PO BID ELISA Stop: 01/25/21 20:59 Last Admin: 12/26/20 20:58 Dose: 20 mg Documented by: [id number] Discontinued Medications Carvedilol (Carvedilol 25 Mg Tab) 25 mg PO NOW ONE Stop: 12/26/20 17:24 Last Admin: 12/26/20 17:47 Dose: 25 mg Documented by: [id number] Diltiazem HCl (Diltiazem Hcl 5 Mg/Ml 5 Ml Vial) 15 mg IV NOW STA Stop: 12/26/20 18:52 Last Admin: 12/26/20 19:00 Dose: 15 mg Documented by: [id number] Cosigned by: [id number] Furosemide (Furosemide 40 Mg/4 Ml Vial) 60 mg IV NOW STA Stop: 12/26/20 17:24 Last Admin: 12/26/20 17:47 Dose: 60 mg Documented by: [id number] Hydralazine HCl (Hydralazine Hcl 25 Mg Tab) 75 mg PO NOW STA Stop: 12/26/20 17:24 Last Admin: 12/26/20 17:46 Dose: 75 mg Documented by: [id number] Lisinopril (Lisinopril 20 Mg Tab) 20 mg PO NOW STA Stop: 12/26/20 17:24 Last Admin: 12/26/20 17:47 Dose: 20 mg Documented by: [id number] Miscellaneous (Stat Iv Infusion Titration Per Protocol) 1 ea N/A NOW STA Stop: 12/26/20 18:52 Last Admin: 12/26/20 21:58 Dose: Not Given Documented by: [id number] Imaging Data Radiologist's Impression: Venous Doppler Study 12/26/20 12:43 US venous doppler LE RT HISTORY: 60 years-old Male swelling acute pain and swelling of the right lower extremity COMPARISON: Duplex venous Doppler study 08/17/2013 TECHNIQUE: Multiple real-time sonographic images of the right lower extremity structures were obtained assessing grayscale appearance, color and spectral flow FINDINGS: Subcutaneous edema. Limited visualization the lower extremity veins. No occlusive deep venous thrombosis. Short segment linear stranding within the greater saphenous vein within the mid thigh. IMPRESSION: 1. Subcutaneous edema without sonographic evidence of deep venous thrombosis. 2. Linear stranding within the greater saphenous vein is suggestive of fibrin stranding from chronic superficial venous thrombus. ACT 112: Negative or not required by law. The above report was generated using voice recognition software. It may contain grammatical, syntax or spelling errors. Electronically signed by: Sharan Prescott M.D. 12/26/2020 4:12 PM Chest X-Ray 12/26/20 12:43 XR chest 1V portable HISTORY: Atypical Chest Pain COMPARISON: Chest 08/11/2019. FINDINGS: No pneumothorax. No pleural effusions. Moderate enlargement of the cardiac silhouette which has slightly progressed. There is progressive interstitial/vascular thickening consistent with mild pulmonary edema. No new focal lung consolidations identified. IMPRESSION: Interval progression of the cardiomegaly and mild interstitial pulmonary edema. ACT 112: Negative or not required by law. Electronically signed by: Jose Walter M.D. 12/26/2020 1:21 PM Venous Doppler Study 12/26/20 12:43 US venous doppler LE RT HISTORY: 60 years-old Male swelling acute pain and swelling of the right lower extremity COMPARISON: Duplex venous Doppler study 08/17/2013 TECHNIQUE: Multiple real-time sonographic images of the right lower extremity structures were obtained assessing grayscale appearance, color and spectral flow FINDINGS: Subcutaneous edema. Limited visualization the lower extremity veins. No occlusive deep venous thrombosis. Short segment linear stranding within the greater saphenous vein within the mid thigh. IMPRESSION: 1. Subcutaneous edema without sonographic evidence of deep venous thrombosis. 2. Linear stranding within the greater saphenous vein is suggestive of fibrin stranding from chronic superficial venous thrombus. ACT 112: Negative or not required by law. The above report was generated using voice recognition software. It may contain grammatical, syntax or spelling errors. Electronically signed by: Sharan Prescott M.D. 12/26/2020 4:12 PM Discharge Plan Visit Data Chief Complaint: Leg Injury/Pain Stated Complaint: RT SIDED LEG SWELLING ED Provider: Gavino Jewell Discharge Problem: New onset atrial fibrillation, Uncontrolled hypertension, Chronic systolic heart failure, Hypervolemia Patient Disposition: Admitted As Inpatient Discharge Instructions Interventions: ED AMA/LWBS Discharge Assessment Last Done: 12/26/20 19:40
[2020-12-26 14:09] LABS: Albumin Level 3.7 gm/dl (3.4-5.0); BUN Creatinine Ratio 19.3 (10-20); Bilirubin,Total 1.1 mg/dl (0.2-1); Calcium 8.9 mg/dl (8.5-10.1); Creatinine Clr Calc Pharmacy 174.5 ml/min; Est GFR (African American) 117.7 ml/min; Est GFR (Non-African American) 101.5 ml/min; Globulin 3.8 gm/dl (2.5-4.0); Phosphorus 3.3 mg/dl (2.5-4.9); Total Protein 7.5 gm/dl (6.4-8.2); Troponin I 0.022 ng/ml (0-0.045)
[2020-12-26 15:47] LABS: Potassium 3.9 mmol/L (3.5-5.1)
[2020-12-26 15:52] LABS: Magnesium 2.2 mg/dl (1.8-2.4)
--- NOTE | 2020-12-26 16:13 | Ultrasound Report ---
US venous doppler LE RT HISTORY: 60 years-old Male swelling acute pain and swelling of the right lower extremity COMPARISON: Duplex venous Doppler study 08/17/2013 TECHNIQUE: Multiple real-time sonographic images of the right lower extremity structures were obtaine d assessing grayscale appearance, color and spectral flow FINDINGS: Subcutaneous edema. Limited visualization the lower extremity veins. No occlusive deep venous thrombo sis. Short segment linear stranding within the greater saphenous vein within the mid thigh. IMPRESSION: 1. Subcutaneous edema without sonographic evidence of deep venous thrombosis. 2. Linear stranding within the greater saphenous vein is suggestive of fibrin stranding from chronic superficial venous thrombus. ACT 112: Negative or not required by law. The above report was generated using voice recognition software. It may contain grammatical, syntax o r spelling errors. Electronically signed by: Sharan Prescott M.D. 12/26/2020 4:12 PM
[2020-12-26] MEDS ORDERED: lisinopril 20 MG TAB PO STA (17:23)
[2020-12-26] MEDS ORDERED: carvediloL 25 MG TAB PO ONE (17:23)
[2020-12-26] MEDS ORDERED: FUROSEMIDE 40 MG/4 ML VIAL IV STA (17:23)
[2020-12-26] MEDS ORDERED: hydrALAZINE HCL 25 MG TAB PO STA (17:23)
--- NOTE | 2020-12-26 18:36 | History & Physical Report ---
Date of Service December 26, 2020 Assessment & Plan (1) New onset atrial fibrillation: This is a 60-year-old male with PMH of uncontrolled hypertension, type 2 diabetes, chronic systolic heart failure, chronic lower extremity superficial thrombus, thoracic aortic aneurysm, HTN, obesity and other medical problems listed below who presents with worsening shortness of breath and lower extremity swelling over the past few days and was found to have new onset A Fib with RVR and decompensated heart failure. EKG with A fib with RVR @ 124 bpm, HR ranging from 120s-140 in ER Started on Diltiazem bolus and drip with improvement of HR to 96 Anticoagulated on Eliquis for chronic superficial DVT 2D echo ordered Cardiology consulted (2) Heart failure, systolic, with acute decompensation: History of dilated cardiomyopathy in the past with EF as low as 20-25% in 2013 Most recent echo from Jul 2019 with improved EF of 40-45% with moderate concentric ventricular hypertrophy and bordlerline RV dilatation Presenting with 3+ BLE edema, SOB. BNP 1,842. CXR with interval progression of the cardiomegaly and mild interstitial pulmonary edema Given 60mg IV Lasix in ED Continue diuresis with 40mg IV Lasix BID starting this evening Strict I&Os, daily weights, low sodium diet, fluid restriction Continue Carvedilol Cardiology consult (3) Type 2 diabetes mellitus: A1c of 18 in Jul 2019 - repeat a1c in AM Hold home agents Basal/bolus insulin while in-patient BSG AC (4) Uncontrolled hypertension: History of uncontrolled HTN - possible underlying JANI? Initially elevated 170/122 but improved on Cardizem drip, given missed PM meds Continue carvedilol, lisinopril, amlodipine Holding hydralazine for now to avoid reflex tachycardia (5) Chronic deep vein thrombosis (DVT): Doppler of RLE without sonographic evidence of deep venous thrombosis. Presence of chronic superficial venous thrombus Continue Eliquis (6) Thoracic aortic aneurysm: History of 4.5 cm ascending thoracic aortic aneurysm on chest CTA in Jul 2019 No chest pain Would benefit from repeat chest CTA to monitor size. Will hold off from giving contrast dye now due to IV diuresis - monitor renal function and consider during admission (7) Dyslipidemia: Continue statin DVT Ppx: Eliquis Code status: FULL PCP: [place] Dispo: Admitted to PCU Patient seen in collaboration with Dr. Nicole. Please see addendum. History of Present Illness Chief Complaint: Shortness of breath Primary Care Provider: Deborah kidd MD This is a 60-year-old male with PMH of uncontrolled hypertension, type 2 diabetes, chronic systolic heart failure, chronic lower extremity superficial thrombus, thoracic aortic aneurysm, HTN, obesity and other medical problems listed below who presents with worsening shortness of breath and lower extremity swelling over the past few days. Endorses feeling progressively more short of breath over the past few months but noticed other symptoms over the past week as well, including significantly worsened swelling of bilateral lower extremities R>L. Also feels that his blood pressure is "still running high" due to feeling tired all the time. Does not have home blood pressure cuff. Has been taking home medications as scheduled. Has not followed up with Dr. Evans in over a year. Has gained weight but unsure how much. Unable to put on pants today due to increased swelling of BLE. Denies orthopnea or PND. Has a residual dry cough from URI 1 month ago. No history of known arrhythmias. Denies lightheadedness, visual changes, palpitations or chest pain. Is on Eliquis for chronic superficial DVT in RLE. Diet includes a lot of packaged foods and snacks but states he is willing to make dietary changes. Drinks 64 oz of diet Mountain Dew daily. Denies fever, chills, congestion, nausea, vomiting, abdominal pain, dysuria, diarrhea or constipation. Allergies Allergy/AdvReac Type Severity Reaction Status Date / Time No Known Allergies Allergy Unverified 12/26/20 14:38 Home Medications Medication Instructions Recorded Confirmed Type apixaban 5 mg tablet (Eliquis) 5 mg PO BID 12/26/20 12/26/20 History aspirin 81 mg chewable tablet 81 mg PO QAM 12/26/20 12/26/20 History (Aspirin Childrens) atorvastatin 40 mg tablet (Lipitor) 40 mg PO QAM 12/26/20 12/26/20 History hydralazine 25 mg tablet 75 mg PO TID 12/26/20 12/26/20 History insulin glargine 100 unit/mL (3 30 unit SUBCUT QAM 12/26/20 12/26/20 History mL) subcutaneous pen (Lantus Solostar U-100 Insulin) insulin lispro 100 unit/mL 10 unit SUBCUT BIDM 12/26/20 12/26/20 History subcutaneous pen (Humalog KwikPen (U-100) Insulin) sotalol 80 mg tablet 80 mg PO BID 30 Days #60 tab 12/30/20 Rx furosemide 40 mg tablet 40 mg PO BID 30 Days #60 tab 12/31/20 Rx losartan 100 mg tablet 100 mg PO DAILY #30 tab 12/31/20 Rx terazosin 2 mg capsule 2 mg PO BID #60 cap 12/31/20 Rx Past Med/Surg History Medical History Chronic deep vein thrombosis (DVT) Chronic systolic heart failure Dilated cardiomyopathy Dyslipidemia Hypertension Morbid obesity Thoracic aortic aneurysm Type 2 diabetes mellitus Uncontrolled hypertension Surgical History History of lumbar surgery Family History Other COPD (chronic obstructive pulmonary disease) Diabetes Hypertension Social History Smoking Status: Never smoker Second Hand Exposure: No; Hx Alcohol Use: Yes Alcohol type: beer Hx Substance Use: No Preferred Language: Georgian Communication Ability: Effective [employer] Required: No Beliefs That Will Affect Care: None marital status: Current Living Situation: Spouse Feels Safe at Home: Yes Assistive Devices: None Review of Systems Review of Systems: At least ten systems reviewed and negative except as noted in the HPI. Physical Exam Physical Exam: General Appearance: WD/WN, vitals as above, NAD, sitting up in bed, pleasant, conversational dyspnea, obese Head: normocephalic, atraumatic Eyes: normal inspection, PERRL, conjunctivae normal, anicteric sclerae ENT: external ear and nose normal, oropharynx normal Neck: normal visual inspection, trachea midline, no thyromegaly Respiratory: normal respiratory effort, expiratory wheezes bilaterally, othe rwise clear to auscultation. No accessory muscle use Cardiovascular: irregular rate & rhythm, no murmur, normal peripheral pulses, 3+ BLE edema. Vessels: difficult to assess JVD with habitus Chest: normal inspection of chest Abdomen/GI: normal bowel sounds, soft, nontender, no hepatosplenomegaly Extremities/Musculoskeletal: Venous stasis changes to RLE. No cyanosis or clubbing, extremities motor strength 5/5 Neurologic: PERRL, EOMI, accommodation nl, no face palsy, no dysarthria, CN's II-XI intact bilaterally and moves all extremities Psychiatric: A+Ox3, euthymic affect Skin: no rashes, normal color, warm/dry Results & Data Results & Data ([facility]) Vital Signs (Past 12 Hours) Vital Signs Temp Pulse Resp BP Pulse Ox 12/26/20 16:46 122 H 31 H 176/143 H 94 12/26/20 15:00 113 H 20 93 12/26/20 13:10 127 H 21 175/123 H 91 12/26/20 11:34 36.8 C 124 H 18 170/122 H 94 Laboratory Results Short CBC 12/26/20 Range/Units 13:10 WBC 9.98 (4.8-10.8) K/uL Hgb 14.2 (14.0-18.0) g/dL Hct 43.0 (42-52) % Plt Count 299 (130-400) K/uL BMP 12/26/20 12/26/20 13:10 15:22 Sodium 136 Potassium 3.9 Chloride 107 Carbon Dioxide 25 BUN 14 Creatinine 0.73 Glucose 118 H Calcium 8.9 Cardiac Enzymes 12/26/20 Range/Units 13:10 Troponin I 0.022 (0-0.045) ng/ml Liver Function 12/26/20 12/26/20 Range/Units 13:10 15:22 Total Bilirubin 1.1 H (0.2-1) mg/dl AST 18 (15-37) U/L ALT 30 (12-78) U/L Alkaline Phosphatase 84 (45-117) U/L Albumin 3.7 (3.4-5.0) gm/dl Diagnostic Findings Chest X-Ray 12/26/20 12:43 XR chest 1V portable HISTORY: Atypical Chest Pain COMPARISON: Chest 08/11/2019. FINDINGS: No pneumothorax. No pleural effusions. Moderate enlargement of the cardiac silhouette which has slightly progressed. There is progressive interstitial/vascular thickening consistent with mild pulmonary edema. No new focal lung consolidations identified. IMPRESSION: Interval progression of the cardiomegaly and mild interstitial pulmonary edema. ACT 112: Negative or not required by law. Electronically signed by: Jose Walter M.D. 12/26/2020 1:21 PM Venous Doppler Study 12/26/20 12:43 US venous doppler LE RT HISTORY: 60 years-old Male swelling acute pain and swelling of the right lower extremity COMPARISON: Duplex venous Doppler study 08/17/2013 TECHNIQUE: Multiple real-time sonographic images of the right lower extremity structures were obtained assessing grayscale appearance, color and spectral flow FINDINGS: Subcutaneous edema. Limited visualization the lower extremity veins. No occlusive deep venous thrombosis. Short segment linear stranding within the greater saphenous vein within the mid thigh. IMPRESSION: 1. Subcutaneous edema without sonographic evidence of deep venous thrombosis. 2. Linear stranding within the greater saphenous vein is suggestive of fibrin stranding from chronic superficial venous thrombus. ACT 112: Negative or not required by law. The above report was generated using voice recognition software. It may contain grammatical, syntax or spelling errors. Electronically signed by: Sharan Prescott M.D. 12/26/2020 4:12 PM ECG Rhythm: atrial fibrillation Code Status & VTE Plan VTE Prophylaxis Plan VTE Prophylaxis will be ordered: Yes Supervising Physician Co-Signing Physician Notes Pt was seen and examined. Agreed with Kirstin JAMIL exam, assessment and plan. 60-year-old male with PMH of uncontrolled hypertension, type 2 diabetes, chronic systolic heart failure, chronic lower extremity superficial thrombus, thoracic aortic aneurysm, HTN, obesity presents to the ER with worsening shortness of breath and lower extremity swelling over the past few days. He said that for the past week that he has been having worsening SOB associated with lower extremities edema. He said that he feels tired all the time. He has not been able to see his cardiology for over 1 yr due to COVID 19. He said that he drinks about 2 cans of 32 oz diet Mountain dew daily. He said that he was not able to fit his his pants due to worsening legs swelling. In the ER he was found with Afib with RVR with HR above the 120. He denies any history of Afib. He said that he is on Eliquis for chronic DVT. Denies lightheadedness, visual changes, palpitations, ever, chills, congestion, nausea, vomiting, abdominal pain or chest pain. CXR in the ER showed Interval progression of the cardiomegaly and mild interstitial pulmonary edema. Doppler of LE showed subcutaneous edema without sonographic evidence of deep venous thrombosis. Linear stranding within the greater saphenous vein is suggestive of fibrin stranding from chronic superficial venous thrombus. Received lasix 60mg IV in ED, will continue diuresis with 40mg IV Lasix BID starting this evening. Will give Cardizem 15mg IV bolus then starting on Cardizem drip. Will consult Cardio. Will get an echo in the morning. Will monitor closely in PCU. MD Bonnie
[2020-12-26] MEDS ORDERED: dilTIAZem HCl 5 MG/ML 5 ML VIAL IV STA (18:51)
[2020-12-26] MEDS ORDERED: STAT IV Infusion **Titration per Protocol STA (18:51)
[2020-12-26] MEDS ORDERED: CARBOHYDRATES FOR HYPOGLYCEMIA PO PRN (20:25)
[2020-12-26] MEDS ORDERED: GLUCOSE 10 TABS/TUBE PO PRN (20:25)
[2020-12-26] MEDS ORDERED: DEXTROSE 50% 50 ML SYRINGE IV PRN (20:25)
[2020-12-26] MEDS ORDERED: ACETAMINOPHEN 325 MG TAB PO PRN (20:25)
[2020-12-26] MEDS ORDERED: POLYETHYLENE (MIRALAX) 17 GM PACK PO PRN (20:25)
[2020-12-26] MEDS ORDERED: LABETALOL HCL IV 5 MG/ML 20ML IV PRN (20:25)
[2020-12-26] MEDS ORDERED: GLUCAGON FOR INJ 1 MG VIAL SQ PRN (20:25)
[2020-12-26] MEDS ORDERED: ONDANSETRON INJ 2 MG/ML 2 ML VIAL IV PRN (20:25)
[2020-12-26] MEDS ORDERED: GLUCOSE 40% GEL 15 GM TUBE PO PRN (20:25)
[2020-12-26] MEDS: APIXABAN 5 MG TABLET PO SCH (20:55)
[2020-12-26] MEDS: carvediloL 25 MG TAB PO SCH (20:56)
[2020-12-26] MEDS: FUROSEMIDE 40 MG in SYRINGE 0 ML IV SCH (20:56)
[2020-12-26] MEDS: lisinopril 20 MG TAB PO SCH (20:58)
[2020-12-26] MEDS ORDERED: hydrALAZINE HCL 25 MG TAB PO SCH (21:00)
[2020-12-26] MEDS: INSULIN ASPART 100 UNITS/ML 3 ML PEN SC SCH (21:56)
[2020-12-26] MEDS: INSULIN GLARGINE SOLOSTAR 100 UNITS/ML 3 ML PEN SC SCH (21:57)
[2020-12-26] MEDS: dilTIAZem HCL 125 MG in DEXTROSE 5% 100 ML IV SCH (21:57)
[2020-12-26] MEDS ORDERED: FUROSEMIDE 40 MG/4 ML VIAL IV SCH (22:00)
--- NOTE | 2020-12-27 06:22 | Electrocardiogram Report ---
Test Reason : Blood Pressure : / mmHG Vent. Rate : 124 BPM Atrial Rate : 129 BPM P-R Int : 000 ms QRS Dur : 104 ms QT Int : 300 ms P-R-T Axes : 000 235 050 degrees QTc Int : 431 ms Atrial fibrillation with rapid ventricular response with premature ventricular or aberrantly conducte d complexes Right superior axis deviation Abnormal ECG When compared with ECG of 13-AUG-2019 07:14, Atrial fibrillation has replaced Sinus rhythm Vent. rate has increased BY 66 BPM Premature ventricular complexes are now Present T wave inversion no longer evident in Inferolateral leads Confirmed by Alfonzo Harper ([id number]) on 12/27/2020 6:22:21 AM Referred By: REFERRED SELF Confirmed By:Alfonzo Harper
[2020-12-27 06:37] LABS: Hematocrit (blood only) 40.3 % (42-52); Hemoglobin 13.4 g/dL (14.0-18.0); Mean Corpuscular Hemoglobin 30.7 pg (25-34); Mean Corpuscular Hgb Conc 33.3 g/dL (32-36); Mean Corpuscular Volume 92.2 fL (80-100); Mean Platelet Volume 10.2 fL (7.4-10.4); Platelet Count 283 K/uL (130-400); RDW Coefficient of Variation 15.9 % (11.5-14.5); RDW Standard Deviation 53.8 fL (36.4-46.3); Red Blood Count 4.37 M/uL (4.7-6.1)
[2020-12-27 07:13] LABS: Estimated Average Glucose 166 mg/dl; Hemoglobin A1C 7.4 % (4.5-5.6)
[2020-12-27 07:17] LABS: BUN Creatinine Ratio 19.2 (10-20); Calcium 8.7 mg/dl (8.5-10.1); Est GFR (African American) 115.7 ml/min; Est GFR (Non-African American) 99.9 ml/min; Potassium 3.4 mmol/L (3.5-5.1)
[2020-12-27] MEDS: INSULIN ASPART 100 UNITS/ML 3 ML PEN SC SCH ×4 (08:11→21:38)
[2020-12-27] MEDS: lisinopril 20 MG TAB PO SCH ×2 (08:12→20:39)
[2020-12-27] MEDS: carvediloL 25 MG TAB PO SCH ×2 (08:12→20:38)
[2020-12-27] MEDS: APIXABAN 5 MG TABLET PO SCH ×2 (08:12→20:39)
[2020-12-27] MEDS: ATORVASTATIN 40 MG TAB PO SCH (08:13)
[2020-12-27] MEDS: ASPIRIN 81 MG ECTAB PO SCH (08:13)
[2020-12-27] MEDS: amLODIPine BESYLATE 5 MG TAB PO SCH (08:13)
[2020-12-27] MEDS: INSULIN GLARGINE SOLOSTAR 100 UNITS/ML 3 ML PEN SC SCH ×2 (08:14→21:37)
[2020-12-27] MEDS: FUROSEMIDE 40 MG in SYRINGE 0 ML IV SCH ×2 (08:38→17:23)
--- NOTE | 2020-12-27 11:06 | Cardiology Consultation ---
Date of Consultation December 27, 2020 Assessment & Plan (1) New onset atrial fibrillation: (2) Heart failure, systolic, with acute decompensation: (3) Thoracic aortic aneurysm: (4) Chronic systolic heart failure: (5) Uncontrolled hypertension: (6) Chronic deep vein thrombosis (DVT): (7) Type 2 diabetes mellitus: The pathophysiology and treatment options for atrial fibrillation were discussed with patient at great lengths. Luckily, he states his been compliant with his Eliquis without missing any doses so should he not convert to normal sinus rhythm on his own overnight and will proceed with DC cardioversion in the a.m. N.p.o. after midnight. Continue current doses of carvedilol, Eliquis and diltiazem drip which can be weaned as necessary. History of Present Illness Attending Physician: Christine Baumann MD History of Present Illness Mr. Martinez is a 60-year-old gentleman who is a refugee from cardiac care the presented to [facility] emergency department on 12/26/2020 with complaints of shortness of breath and lower extremity edema. Patient states that he has noticed these problems for a few days but states that they seem to have worsened significantly. He also felt that his blood pressure was still running high and being tired. He states he has been taking his home medications as directed but has not followed up with Dr. Savage in over a year. He admits to not following dietary restrictions eating large amounts of packaged foods and snacks along with 64 ounces of Mountain Dew a day Past medical history as per most recent outpatient cardiology clinic note 1. Hypertensive heart disease with uncontrolled blood pressure 2. Cardiomyopathy 3. 4.5cm ascending aortic aneurysm 4. Dyslipidemia goal LDL less than 100mg/dL Allergies Allergy/AdvReac Type Severity Reaction Status Date / Time No Known Allergies Allergy Unverified 12/26/20 14:38 Home Medications Medication Instructions Recorded Confirmed Type furosemide [Lasix] 40 - 60 mg PO DAILY 08/11/19 12/26/20 History amlodipine [Norvasc] 10 mg PO QAM 12/26/20 12/26/20 History apixaban [Eliquis] 5 mg PO BID 12/26/20 12/26/20 History aspirin [Aspirin Childrens] 81 mg PO QAM 12/26/20 12/26/20 History atorvastatin [Lipitor] 40 mg PO QAM 12/26/20 12/26/20 History carvedilol [Coreg] 25 mg PO BID 12/26/20 12/26/20 History hydralazine 75 mg PO TID 12/26/20 12/26/20 History insulin glargine [Lantus Solostar 30 unit SUBCUT QAM 12/26/20 12/26/20 History U-100 Insulin] insulin lispro [Humalog KwikPen 10 unit SUBCUT BIDM 12/26/20 12/26/20 History Insulin] lisinopril [Prinivil] 20 mg PO BID 12/26/20 12/26/20 History Patient History Medical History Chronic deep vein thrombosis (DVT) Chronic systolic heart failure Dilated cardiomyopathy Dyslipidemia Hypertension Morbid obesity Thoracic aortic aneurysm Type 2 diabetes mellitus Uncontrolled hypertension Surgical History History of lumbar surgery Family History Other COPD (chronic obstructive pulmonary disease) Diabetes Hypertension Social History Smoking Status: Never smoker Second Hand Exposure: No; Hx Alcohol Use: Yes Alcohol type: beer Hx Substance Use: No Preferred Language: Macanese Communication Ability: Effective Rug Dry Room Attendant Required: No Beliefs That Will Affect Care: None marital status: Current Living Situation: Spouse Other Information That Helps Us Care for You: No Feels Safe at Home: Yes Safety Concerns: Feels Safe At This Time Assistive Devices: Glasses Review of Systems Review of Systems: All systems reviewed & are unremarkable except as noted in HPI & below Physical Exam Physical Exam: General: Awake, alert and oriented x 3. No acute distress. HEENT: Normocephalic, atraumatic. Pupils equal, round and reactive to light and accommodation. Extraocular muscles are intact. Anicteric sclera. Moist mucous membranes. Neck: No JVD. No bruit. Cardiovascular: irregularly irregular, unable to appreciate murmur, rub or gallop. Pulmonary: Clear to auscultation bilaterally. No rales, rhonchi, or wheezing. Abdomen: Bowel sounds x 4, soft. No rebound, guarding or tenderness. No organomegaly. Extremities: No clubbing, cyanosis or edema. +2 pedal pulses bilaterally. Skin: Warm and dry. Results & Data ([facility]) Vital Signs (Past 12 Hours) Vital Signs Temp Pulse Resp BP Pulse Ox 12/27/20 07:06 36.5 C 94 H 20 131/79 98 12/27/20 04:00 95 H 20 89 L 12/27/20 03:52 36.5 C 87 20 136/83 93 12/27/20 02:18 150/95 H 12/27/20 01:17 163/95 H Diagnostic Findings 2D echocardiogram report 08/12/19: Left ventricular ejection fraction is 40 to 45%. Moderate concentric left ventricular hypertrophy. Borderline right ventricular dilatation. Normal right ventricular systolic function. No significant valvular pathology.
--- NOTE | 2020-12-27 19:08 | Hospitalist Progress Note ---
Date of Service December 27, 2020 Assessment & Plan (1) New onset atrial fibrillation: This is a 60-year-old male with PMH of uncontrolled hypertension, type 2 diabetes, chronic systolic heart failure, chronic lower extremity superficial thrombus, thoracic aortic aneurysm, HTN, obesity and other medical problems listed below who presents with worsening shortness of breath and lower extremity swelling over the past few days and was found to have new onset A Fib with RVR and decompensated heart failure. EKG with A fib with RVR @ 124 bpm, HR ranging from 120s-140 in ER Patient started on IV Cardizem drip clinically remains rate controlled A. fib, Has been on Eliquis for chronic DVT which has been continued for stroke prophylaxis Cardiology eval appreciated, plan for DC cardioversion in a.m. (2) Heart failure, systolic, with acute decompensation: History of dilated cardiomyopathy in the past with EF as low as 20-25% in 2013 Most recent echo from Jul 2019 with improved EF of 40-45% with moderate concentric ventricular hypertrophy and bordlerline RV dilatation Presenting with 3+ BLE edema, SOB. BNP 1,842. CXR with interval progression of the cardiomegaly and mild interstitial pulmonary edema Given 60mg IV Lasix in ED Continue diuresis with 40mg IV Lasix BID Strict I&Os, daily weights, low sodium diet, fluid restriction Continue Carvedilol Cardiology consult appreciated (3) Type 2 diabetes mellitus: A1c of 18 in Jul 2019 - repeat a1c in AM Hold home agents Basal/bolus insulin while in-patient BSG AC (4) Uncontrolled hypertension: History of uncontrolled HTN - possible underlying JANI? Continue carvedilol, lisinopril, amlodipine (5) Chronic deep vein thrombosis (DVT): Doppler of RLE without sonographic evidence of deep venous thrombosis. Presence of chronic superficial venous thrombus Continue Eliquis (6) Thoracic aortic aneurysm: History of 4.5 cm ascending thoracic aortic aneurysm on chest CTA in Jul 2019 No chest pain (7) Dyslipidemia: Continue statin DVT Ppx: Eliquis Code status: FULL PCP: [place] Dispo: Patient is expected to be discharged home when medically stable Admission and Anticipated Discharge Date Admission Date: December 26, 2020 Subjective Follow up visit for A. fib RVR: Patient reports feeling fine, no complaint of dizzy spell lightheadedness no palpitation no shortness of breath or orthopnea States he did noticed decreased in exercise tolerance, increased fatigue in the last several months on Cardizem drip, remains in rate controlled A. fib No complaint of fever chills no headache, no chest pain Review of Systems Review of Systems: All systems reviewed & are unremarkable except as noted in Subjective Physical Exam Constitutional: WD/WN, vitals as above Eyes: PERRL, conjunctivae normal, anicteric sclerae ENMT: external ear and nose normal, oropharynx normal Neck: trachea midline, no thyromegaly Respiratory: normal respiratory effort, lungs clear to auscultation Cardiovascular: Rate/Rhythm: + irregularly irregular Extremities: no edema Gastrointestinal (Abdomen): Percussion/Palpation: abdomen soft; abdomen non tender Musculoskeletal: no cyanosis or clubbing, extremities motor strength 5/5 Skin: no rashes, warm and dry Neurologic: PERRL, EOMI, accommodation nl, no face palsy, no dysarthria Psychiatric: A+Ox3, euthymic affect Results & Data Results & Data ([facility]) Vital Signs (Past 12 Hours) Vital Signs Temp Pulse Resp BP Pulse Ox 12/27/20 15:42 36.6 C 74 18 141/97 H 97 12/27/20 11:40 36.4 C L 81 19 141/90 H 97 12/27/20 07:06 36.5 C 94 H 20 131/79 98
[2020-12-27] MEDS: dilTIAZem HCL 125 MG in DEXTROSE 5% 100 ML IV SCH (20:37)
--- NOTE | 2020-12-28 06:33 | Electrocardiogram Report ---
Test Reason : Blood Pressure : / mmHG Vent. Rate : 090 BPM Atrial Rate : 104 BPM P-R Int : 000 ms QRS Dur : 106 ms QT Int : 394 ms P-R-T Axes : 000 240 069 degrees QTc Int : 481 ms Atrial fibrillation Right superior axis deviation Nonspecific T wave abnormality Prolonged QT Abnormal ECG When compared with ECG of 26-DEC-2020 12:59, QT has lengthened Premature ventricular complexes are no longer Present Confirmed by Alfonzo Harpre ([id number]) on 12/28/2020 6:33:14 AM Referred By: REFERRED SELF Confirmed By:Alfonzo Harper
[2020-12-28 07:12] LABS: Hematocrit (blood only) 42.9 % (42-52); Mean Corpuscular Hemoglobin 30.3 pg (25-34); Mean Corpuscular Hgb Conc 32.6 g/dL (32-36); Mean Corpuscular Volume 92.9 fL (80-100); Mean Platelet Volume 10.1 fL (7.4-10.4); Platelet Count 282 K/uL (130-400); RDW Coefficient of Variation 15.8 % (11.5-14.5); Red Blood Count 4.62 M/uL (4.7-6.1); White Blood Count 7.57 K/uL (4.8-10.8)
[2020-12-28] MEDS: FUROSEMIDE 40 MG in SYRINGE 0 ML IV SCH ×2 (07:49→17:45)
[2020-12-28] MEDS: carvediloL 25 MG TAB PO SCH (07:49)
[2020-12-28] MEDS: lisinopril 20 MG TAB PO SCH (07:50)
[2020-12-28] MEDS: amLODIPine BESYLATE 5 MG TAB PO SCH (07:50)
[2020-12-28] MEDS: INSULIN GLARGINE SOLOSTAR 100 UNITS/ML 3 ML PEN SC SCH ×2 (07:50→20:56)
[2020-12-28] MEDS: ATORVASTATIN 40 MG TAB PO SCH (07:50)
[2020-12-28] MEDS: INSULIN ASPART 100 UNITS/ML 3 ML PEN SC SCH ×4 (07:53→20:56)
[2020-12-28 07:58] LABS: BUN Creatinine Ratio 21.4 (10-20); Calcium 8.8 mg/dl (8.5-10.1); Creatinine Clr Calc Pharmacy 149.6 ml/min; Est GFR (African American) 111.6 ml/min; Est GFR (Non-African American) 96.3 ml/min; Potassium 3.5 mmol/L (3.5-5.1)
[2020-12-28] MEDS: ASPIRIN 81 MG ECTAB PO SCH (09:24)
[2020-12-28] MEDS: APIXABAN 5 MG TABLET PO SCH ×2 (09:24→20:09)
--- NOTE | 2020-12-28 11:17 | Cardiology Progress Note ---
Date of Service December 28, 2020 Assessment & Plan (1) New onset atrial fibrillation: (2) Heart failure, systolic, with acute decompensation: (3) Thoracic aortic aneurysm: (4) Chronic systolic heart failure: (5) Uncontrolled hypertension: (6) Chronic deep vein thrombosis (DVT): (7) Type 2 diabetes mellitus: The pathophysiology and treatment options for atrial fibrillation were discussed with patient at great lengths. pt successfully cardioverted will require several days of diuresis so sotalol would be a viable option. discussed medication along with risks/benefits pt agreeable start sotalol 80mg po bid continues tele monitoring for 72 hours daily ekg's to follow QT interval cont Eliquis uninterrupted Admission and Anticipated Discharge Date Admission Date: December 26, 2020 Subjective Pt seen and examined, chart reviewed. States that he feels well s/p cardioversion. Palpitations and sob resolved. Still with R>L LE edema. Tele reviewed: sinus rhythm s/p cardioversion. Review of Systems Review of Systems: All systems reviewed & are unremarkable except as noted in HPI & below Physical Exam Physical Exam: General: Awake, alert and oriented x 3. No acute distress. HEENT: Normocephalic, atraumatic. Pupils equal, round and reactive to light and accommodation. Extraocular muscles are intact. Anicteric sclera. Moist mucous membranes. Neck: No JVD. No bruit. Cardiovascular: irregularly irregular, unable to appreciate murmur, rub or gallop. Pulmonary: Clear to auscultation bilaterally. No rales, rhonchi, or wheezing. Abdomen: Bowel sounds x 4, soft. No rebound, guarding or tenderness. No organomegaly. Extremities: No clubbing, cyanosis or edema. +2 pedal pulses bilaterally. Skin: Warm and dry. Results & Data ([facility]) Vital Signs (Past 12 Hours) Vital Signs Temp Pulse Resp BP BP Pulse Ox 12/28/20 09:22 138/96 12/28/20 07:17 36.9 C 90 19 152/101 H 91 12/28/20 03:00 36.7 C 87 19 147/88 H 93
[2020-12-28] MEDS ORDERED: MIDAZOLAM HCL 1 MG/ML 2ML VIAL ONE (11:31)
[2020-12-28] MEDS ORDERED: fentaNYL citrate 100 MCG/2 ML VIAL ONE (11:31)
--- NOTE | 2020-12-28 12:07 | Pre Anesthesia Assessment ---
Date of Service December 28, 2020 Pre Sedation Assessment Vital Signs Temp Pulse Pulse Resp BP BP Pulse Ox 12/28/20 09:22 138/96 12/28/20 07:17 36.9 C 90 19 152/101 H 91 12/28/20 03:00 36.7 C 87 19 147/88 H 93 12/27/20 23:01 36.7 C 95 H 21 171/107 H 90 12/27/20 23:00 82 12/27/20 20:03 37 C 79 18 160/97 H 97 12/27/20 15:42 36.6 C 74 18 141/97 H 97 Pre-Sedation Airway Assessment Smoking Status: Never smoker Short, Thick Neck: No Thyromental Distance: > or= 3.5 Finger Breadths Oral Cavity: + WNL Mallampati Class: III ASA: ASA3 NPO Status Date of Last Intake of Fluids: 12/27/20 Time of Last Intake of Fluids: 20:00 Date of Last Intake of Solid Food: 12/27/20 Time of Last Intake of Solid Foods: 20:00 Notes The planned sedation has been discussed with the patient. Informed Consent was obtained. I have identified the patient, determined the appropriateness of sedation and have assessed the patient immediately prior to the procedure. All medicine(s) and interventions are by my order.
--- NOTE | 2020-12-28 12:28 | Post Anesthesia Assessment ---
Date of Service December 28, 2020 Post Sedation Assessment Vital Signs Temp Pulse Pulse Resp BP BP Pulse Ox 12/28/20 12:25 56 L 16 98 12/28/20 12:22 79 14 128/98 98 12/28/20 12:20 95 H 16 157/108 H 98 12/28/20 12:15 90 16 148/115 H 98 12/28/20 09:22 138/96 12/28/20 07:17 36.9 C 90 19 152/101 H 91 12/28/20 03:00 36.7 C 87 19 147/88 H 93 12/27/20 23:01 36.7 C 95 H 21 171/107 H 90 12/27/20 23:00 82 12/27/20 20:03 37 C 79 18 160/97 H 97 12/27/20 15:42 36.6 C 74 18 141/97 H 97 Recovery Score Activity: Moves 4 extremities Respiration: Deep Breath/Cough Circulation: +/-20% PreAnes Value Consciousness: Nonresponsive Oxygen Saturation: O2 needed for >90% Post Anesthesia Score: 7 Discharge Sedation Level of Care: Fast Track Phase II Post Sedation Plan On clinical assessment, the patient appears to have tolerated the sedation without complications. Patient is recovering as anticipated. Patient will continue to be monitored by nursing and may be discharged when sedation discharge criteria are met per below protocol. Upon Completions of procedure up to 15 minutes continue every 5 minute vital signs and the P.A.R. score; then discharge to a Phase I or Fast Track to Phase II per the following guidelines: * Discharge Patient to appropriate Phase II area if PAR is 8 or greater or return to pre- procedure baseline. The post - procedure orders will be as directed. * If PAR score is less than 8 or not return to pre-procedure baseline then patient will follow Phase I monitoring till PAR is reached for Phase II. The Phase I may be done in procedure room or may call to secure a Phase I area. * If naloxone or flumazenil are used for reversal, hold in Phase I for continued monitoring from when last reversal dose was given for a minimum of 60 minutes or longer pending the nurse and/or physician discretion of patient condition before discharge to Phase II. Please call the Sedation Physician to re-evaluate and complete post-note for discharge to Phase II area. Do NOT discharge from procedure sedation or Phase 1 until post- sedation evaluation note is complete by procedure /sedation MD Sedation Discharge Instructions to be given to the patient at discharge to home.
--- NOTE | 2020-12-28 12:31 | Cardioversion ---
Date of Service December 28, 2020 Electrical Cardioversion Rpt Electrical Cardioversion Report Informed consent obtained. Patient prepped. Adequate moderate sedation achieved with a total of Versed 5 mg and fentanyl 125 mcg First attempt with 360 J of direct current energy was unsuccessful. Second attempt made while applying pressure to the anterior pad by myself successful at converting the patient to normal sinus rhythm. Tolerated procedure well. Start time:1215 Stop time:1225 Plan: Recover per protocol. Return to telemetry. We will continue with diuresis. We will initiate sotalol 80 mg twice daily and continue Eliquis uninterrupted.
[2020-12-28] MEDS: dilTIAZem HCL 125 MG in DEXTROSE 5% 100 ML IV SCH (13:14)
[2020-12-28] MEDS: SOTALOL HCL 80 MG TAB PO SCH ×2 (14:36→20:09)
--- NOTE | 2020-12-28 17:16 | Hospitalist Progress Note ---
Date of Service December 28, 2020 Assessment & Plan (1) New onset atrial fibrillation: This is a 60-year-old male with PMH of uncontrolled hypertension, type 2 diabetes, chronic systolic heart failure, chronic lower extremity superficial thrombus, thoracic aortic aneurysm, HTN, obesity and other medical problems listed below who presents with worsening shortness of breath and lower extremity swelling over the past few days and was found to have new onset A Fib with RVR and decompensated heart failure. EKG with A fib with RVR @ 124 bpm, HR ranging from 120s-140 in ER Patient started on IV Cardizem drip clinically remains rate controlled A. fib, Has been on Eliquis for chronic DVT which has been continued for stroke prophylaxis Cardiology eval appreciated, s/p DC cardioversion today started on sotalol (2) Heart failure, systolic, with acute decompensation: History of dilated cardiomyopathy in the past with EF as low as 20-25% in 2013 Most recent echo from Jul 2019 with improved EF of 40-45% with moderate concentric ventricular hypertrophy and bordlerline RV dilatation Presenting with 3+ BLE edema, SOB. BNP 1,842. CXR with interval progression of the cardiomegaly and mild interstitial pulmonary edema Given 60mg IV Lasix in ED Continue diuresis with 40mg IV Lasix BID Strict I&Os, daily weights, low sodium diet, fluid restriction Continue Carvedilol Cardiology consult appreciated (3) Type 2 diabetes mellitus: A1c of 18 in Jul 2019 - repeat a1c in AM Hold home agents Basal/bolus insulin while in-patient [facility] (4) Uncontrolled hypertension: History of uncontrolled HTN - possible underlying JANI? Continue carvedilol, [email or web address] , started on losartan 100 mg daily , amlodipine (5) Chronic deep vein thrombosis (DVT): Doppler of RLE without sonographic evidence of deep venous thrombosis. Presence of chronic superficial venous thrombus Continue Eliquis (6) Thoracic aortic aneurysm: History of 4.5 cm ascending thoracic aortic aneurysm on chest CTA in Jul 2019 No chest pain (7) Dyslipidemia: Continue statin DVT Ppx: Eliquis Code status: FULL PCP: [place] Dispo: needs continued PCU stay for cardiac monitoring while getting sotalol loading dose Admission and Anticipated Discharge Date Admission Date: December 26, 2020 Subjective Follow up visit for A. fib RVR: s/p dc cardioversion , says he feels better , breathing colin no SOB , still has orthopnea offers no other complain Physical Exam Constitutional: WD/WN, vitals as above Eyes: PERRL, conjunctivae normal, anicteric sclerae ENMT: external ear and nose normal, oropharynx normal Neck: trachea midline, no thyromegaly Respiratory: normal respiratory effort, lungs clear to auscultation Cardiovascular: Rate/Rhythm: + irregularly irregular Extremities: + edema (extensive lower ext edema ) Gastrointestinal (Abdomen): Percussion/Palpation: abdomen soft; abdomen nontender Musculoskeletal: no cyanosis or clubbing, extremities motor strength 5/5 Skin: no rashes, warm and dry Neurologic: PERRL, EOMI, accommodation nl, no face palsy, no dysarthria Psychiatric: A+Ox3, euthymic affect Results & Data Results & Data ([facility]) Vital Signs (Past 12 Hours) Vital Signs Temp Pulse Pulse Resp BP BP Pulse Ox 12/28/20 15:29 36.5 C 63 18 144/95 H 92 12/28/20 14:29 133/87 12/28/20 13:00 36.4 C L 72 14 155/98 H 90 12/28/20 12:40 60 14 151/110 H 99 12/28/20 12:25 56 L 64 16 153/108 H 98 12/28/20 12:22 79 14 128/98 98 12/28/20 12:20 95 H 16 157/108 H 98 12/28/20 12:15 90 16 148/115 H 98 12/28/20 09:22 138/96 12/28/20 07:17 36.9 C 90 19 152/101 H 91
[2020-12-29] MEDS: dilTIAZem HCL 125 MG in DEXTROSE 5% 100 ML IV SCH (04:47)
--- NOTE | 2020-12-29 06:06 | Electrocardiogram Report ---
Test Reason : Blood Pressure : / mmHG Vent. Rate : 073 BPM Atrial Rate : 073 BPM P-R Int : 214 ms QRS Dur : 112 ms QT Int : 444 ms P-R-T Axes : 075 -84 070 degrees QTc Int : 489 ms Sinus rhythm with 1st degree A-V block with Premature supraventricular complexes Left axis deviation Prolonged QT Abnormal ECG When compared with ECG of 27-DEC-2020 07:44, Sinus rhythm has replaced Atrial fibrillation Confirmed by Alfonzo Harper ([id number]) on 12/29/2020 6:06:31 AM Referred By: REFERRED SELF Confirmed By:Alfonzo Harper
[2020-12-29] MEDS: LOSARTAN POTASSIUM 50 MG TAB PO SCH (08:07)
[2020-12-29] MEDS: FUROSEMIDE 40 MG in SYRINGE 0 ML IV SCH ×2 (08:07→16:50)
[2020-12-29] MEDS: ASPIRIN 81 MG ECTAB PO SCH (08:07)
[2020-12-29] MEDS: amLODIPine BESYLATE 5 MG TAB PO SCH (08:07)
[2020-12-29] MEDS: ATORVASTATIN 40 MG TAB PO SCH (08:07)
[2020-12-29] MEDS: APIXABAN 5 MG TABLET PO SCH ×2 (08:07→21:10)
[2020-12-29] MEDS: SOTALOL HCL 80 MG TAB PO SCH ×2 (08:07→21:10)
[2020-12-29] MEDS ORDERED: TERAZOSIN HCL 1 MG CAP PO ONE (09:07)
[2020-12-29] MEDS: INSULIN ASPART 100 UNITS/ML 3 ML PEN SC SCH ×4 (09:22→21:31)
[2020-12-29] MEDS: INSULIN GLARGINE SOLOSTAR 100 UNITS/ML 3 ML PEN SC SCH ×2 (09:23→21:10)
--- NOTE | 2020-12-29 16:45 | Hospitalist Progress Note ---
Date of Service December 29, 2020 Assessment & Plan (1) New onset atrial fibrillation: This is a 60-year-old male with PMH of uncontrolled hypertension, type 2 diabetes, chronic systolic heart failure, chronic lower extremity superficial thrombus, thoracic aortic aneurysm, HTN, obesity and other medical problems listed below who presents with worsening shortness of breath and lower extremity swelling over the past few days and was found to have new onset A Fib with RVR and decompensated heart failure. EKG with A fib with RVR @ 124 bpm, HR ranging from 120s-140 in ER Patient started on IV Cardizem drip clinically remains rate controlled A. fib, Has been on Eliquis for chronic DVT which has been continued for stroke prophylaxis Cardiology eval appreciated, Status post successful cardioversion. Remains in sinus with rate controlled. Started on sotalol load yesterday 12/28/2020 (2) Heart failure, systolic, with acute decompensation: History of dilated cardiomyopathy in the past with EF as low as 20-25% in 2013 Most recent echo from Jul 2019 with improved EF of 40-45% with moderate concentric ventricular hypertrophy and bordlerline RV dilatation Presenting with 3+ BLE edema, SOB. BNP 1,842. CXR with interval progression of the cardiomegaly and mild interstitial pulmonary edema Given 60mg IV Lasix in ED Continue diuresis with 40mg IV Lasix BID Patient reports improvement of orthopnea, lower extremity swelling improved with diuresis Strict I&Os, daily weights, low sodium diet, fluid restriction Continue Carvedilol Cardiology consult appreciated (3) Type 2 diabetes mellitus: A1c of 18 in Jul 2019 - repeat a1c in AM Hold home agents Basal/bolus insulin while in-patient [facility] (4) Uncontrolled hypertension: History of uncontrolled HTN - possible underlying JANI? Continue carvedilol, lisinoprils.[email or web address] , started on losartan 100 mg daily , amlodipine (5) Chronic deep vein thrombosis (DVT): Doppler of RLE without sonographic evidence of deep venous thrombosis. Presence of chronic superficial venous thrombus Continue Eliquis (6) Thoracic aortic aneurysm: History of 4.5 cm ascending thoracic aortic aneurysm on chest CTA in Jul 2019 No chest pain (7) Dyslipidemia: Continue statin DVT Ppx: Eliquis Code status: FULL PCP: [place] Dispo: needs continued PCU stay for cardiac monitoring while getting sotalol loading dose Admission and Anticipated Discharge Date Admission Date: December 26, 2020 Subjective Follow up visit for Trina dickinson RVR: Remains in sinus rhythm rate controlled after cardioversion. Patient denies of any complaint No shortness of breath, no cough Orthopnea has improved No fever chills, lower extremity swelling/edema has improved with diuresis Review of Systems Review of Systems: All systems reviewed & are unremarkable except as noted in Subjective Physical Exam Constitutional: WD/WN, vitals as above Eyes: PERRL, conjunctivae normal, anicteric sclerae ENMT: external ear and nose normal, oropharynx normal Neck: trachea midline, no thyromegaly Respiratory: normal respiratory effort, lungs clear to auscultation Cardiovascular: Rate/Rhythm: regular rate and regular rhythm Extremities: + edema (Bilateral lower extremity edema with chronic venous stasis change) Gastrointestinal (Abdomen): Percussion/Palpation: abdomen soft; abdomen nontender Musculoskeletal: no cyanosis or clubbing, extremities motor strength 5/5 Skin: no rashes, warm and dry Neurologic: PERRL, EOMI, accommodation nl, no face palsy, no dysarthria Psychiatric: A+Ox3, euthymic affect Results & Data Results & Data ([facility]) Vital Signs (Past 12 Hours) Vital Signs Temp Pulse Resp BP Pulse Ox 12/29/20 12:22 36.9 C 74 18 149/78 H 96 12/29/20 08:01 36.8 C 77 16 145/73 H 98
--- NOTE | 2020-12-29 17:16 | Cardiology Progress Note ---
Date of Service December 29, 2020 Assessment & Plan (1) New onset atrial fibrillation: (2) Heart failure, systolic, with acute decompensation: (3) Thoracic aortic aneurysm: (4) Chronic systolic heart failure: (5) Uncontrolled hypertension: (6) Chronic deep vein thrombosis (DVT): (7) Type 2 diabetes mellitus: The pathophysiology and treatment options for atrial fibrillation were discussed with patient at great lengths. pt successfully cardioverted will require several days of diuresis so sotalol would be a viable option. discussed medication along with risks/benefits pt agreeable start sotalol 80mg po bid continues tele monitoring for 72 hours daily ekg's to follow QT interval cont Eliquis uninterrupted Admission and Anticipated Discharge Date Admission Date: December 26, 2020 Subjective Patient seen and examined, chart reviewed. States he is feeling much better today. Notes the palpitations have resolved and lower extremity edema is improving. Denies chest pain or lightheadedness. Telemetry reviewed: Normal sinus rhythm without recurrences of A. fib overnight EKG: Sinus rhythm with a QTC of 500 ms. Review of Systems Review of Systems: All systems reviewed & are unremarkable except as noted in HPI & below Physical Exam Physical Exam: General: Awake, alert and oriented x 3. No acute distress. HEENT: Normocephalic, atraumatic. Pupils equal, round and reactive to light and accommodation. Extraocular muscles are intact. Anicteric sclera. Moist mucous membranes. Neck: No JVD. No bruit. Cardiovascular: irregularly irregular, unable to appreciate murmur, rub or gallop. Pulmonary: Clear to auscultation bilaterally. No rales, rhonchi, or wheezing. Abdomen: Bowel sounds x 4, soft. No rebound, guarding or tenderness. No organomegaly. Extremities: No clubbing, cyanosis or edema. +2 pedal pulses bilaterally. Skin: Warm and dry. Results & Data ([facility]) Vital Signs (Past 12 Hours) Vital Signs Temp Pulse Resp BP Pulse Ox 12/29/20 16:00 37.0 C 88 18 109/63 99 12/29/20 12:22 36.9 C 74 18 149/78 H 96 12/29/20 08:01 36.8 C 77 16 145/73 H 98
--- NOTE | 2020-12-30 06:27 | Electrocardiogram Report ---
Test Reason : Blood Pressure : / mmHG Vent. Rate : 075 BPM Atrial Rate : 075 BPM P-R Int : 230 ms QRS Dur : 112 ms QT Int : 448 ms P-R-T Axes : 053 -75 063 degrees QTc Int : 500 ms Sinus rhythm with 1st degree A-V block Right atrial enlargement Left axis deviation Poor R wave progression, consider anterior AR vs. lead placement vs. LVH Prolonged QT Abnormal ECG When compared with ECG of 28-DEC-2020 12:25, Premature supraventricular complexes are no longer Present Confirmed by Alfonzo Harper ([id number]) on 12/30/2020 6:27:09 AM Referred By: REFERRED SELF Confirmed By:Alfonzo Harper
[2020-12-30 08:00] LABS: BUN Creatinine Ratio 22.7 (10-20); Creatinine Clr Calc Pharmacy 144.4 ml/min; Est GFR (African American) 111.6 ml/min; Est GFR (Non-African American) 96.3 ml/min; Potassium 3.5 mmol/L (3.5-5.1)
[2020-12-30] MEDS: INSULIN ASPART 100 UNITS/ML 3 ML PEN SC SCH ×4 (08:12→21:12)
[2020-12-30] MEDS: APIXABAN 5 MG TABLET PO SCH ×2 (08:14→20:46)
[2020-12-30] MEDS: amLODIPine BESYLATE 5 MG TAB PO SCH (08:14)
[2020-12-30] MEDS: ASPIRIN 81 MG ECTAB PO SCH (08:14)
[2020-12-30] MEDS: FUROSEMIDE 40 MG in SYRINGE 0 ML IV SCH (08:15)
[2020-12-30] MEDS: ATORVASTATIN 40 MG TAB PO SCH (08:15)
[2020-12-30] MEDS: INSULIN GLARGINE SOLOSTAR 100 UNITS/ML 3 ML PEN SC SCH ×2 (08:16→20:47)
[2020-12-30] MEDS: SOTALOL HCL 80 MG TAB PO SCH ×2 (08:16→20:46)
[2020-12-30] MEDS: LOSARTAN POTASSIUM 50 MG TAB PO SCH (08:16)
[2020-12-30] MEDS ORDERED: hydrALAZINE HCL 25 MG TAB PO ONE (09:18)
--- NOTE | 2020-12-30 10:25 | Electrocardiogram Report ---
Test Reason : Blood Pressure : / mmHG Vent. Rate : 075 BPM Atrial Rate : 075 BPM P-R Int : 222 ms QRS Dur : 108 ms QT Int : 442 ms P-R-T Axes : 060 270 055 degrees QTc Int : 493 ms Poor data quality, interpretation may be adversely affected Sinus rhythm with 1st degree A-V block Possible Left atrial enlargement Left axis deviation Poor R wave progression, consider anterior IN vs. lead placement vs. LVH Prolonged QT Abnormal ECG When compared with ECG of 29-DEC-2020 06:16, (unconfirmed) Incomplete left bundle block is no longer Present Confirmed by Vasu Lacey ([id number]) on 12/30/2020 10:24:36 AM Referred By: REFERRED SELF Confirmed By:Travis Lacey
--- NOTE | 2020-12-30 12:13 | Cardiology Progress Note ---
Date of Service December 30, 2020 Assessment & Plan (1) New onset atrial fibrillation: (2) Heart failure, systolic, with acute decompensation: (3) Thoracic aortic aneurysm: (4) Chronic systolic heart failure: (5) Uncontrolled hypertension: (6) Chronic deep vein thrombosis (DVT): (7) Type 2 diabetes mellitus: The patient is maintaining sinus rhythm. The QT interval by my measurement from telemetry is 443. Continue with the sotalol load. I think the patient is out of acute congestive heart failure and we can discontinue the IV Lasix and start him on oral. Admission and Anticipated Discharge Date Admission Date: December 26, 2020 Subjective The patient has no new cardiac complaints. He is ambulating in the hallway. Review of Systems Review of Systems: All systems reviewed & are unremarkable except as noted in Subjective Physical Exam Physical Exam: General: no acute distress and stated age Head: normocephalic, no masses, lesions, tenderness or abnormalities Eyes: conjunctiva are pink and non-injected, sclera clear Neck: supple, no adenopathy, no bruits, normal jugular venous pulse, no hepatojugular reflux Chest: normal shape and normal respiratory effort Lungs: clear to auscultation and percussion Cardiac Exam: - regular rate & rhythm, no murmurs gallops or rubs - normal S1, normal S2 Pulses: 2(+) throughout Abdomen: abdomen soft, non-tender, no abnormal masses and no hepatosplenomegaly Musculoskeletal: no gait disturbance, no joint inflammation, no deforming arthritis Extremities: no edema and no cyanosis Neuro: grossly normal exam Results & Data ([facility]) Vital Signs (Past 12 Hours) Vital Signs Temp Pulse Pulse Pulse Resp BP BP 12/30/20 09:31 70 142/90 H 12/30/20 08:41 36.5 C 70 16 178/115 H 189/130 H 12/30/20 07:39 73 12/30/20 03:30 36.7 C 79 18 156/91 H Pulse Ox 12/30/20 09:31 12/30/20 08:41 95 12/30/20 07:39 12/30/20 03:30 90 Laboratory Results Laboratory Results - last 24 hr 12/29/20 12/29/20 12/30/20 16:34 21:07 06:50 Sodium 139 Potassium 3.5 Chloride 103 Carbon Dioxide 30 Anion Gap 6.0 BUN 19 H Creatinine 0.83 Est Cr Clr Drug Dosing 144.4 Est GFR ( Amer) 111.6 Est GFR (Non-Af Amer) 96.3 BUN/Creatinine Ratio 22.7 H Glucose 128 H POC Glucose 121 H 105 H Calcium 9.0 12/30/20 12/30/20 07:55 11:25 Sodium Potassium Chloride Carbon Dioxide Anion Gap BUN Creatinine Est Cr Clr Drug Dosing Est GFR ( Amer) Est GFR (Non-Af Amer) BUN/Creatinine Ratio Glucose POC Glucose 123 H 126 H Calcium Medications Administered Current Inpatient Medications Acetaminophen (Acetaminophen 325 Mg Tab) 650 mg PO Q4H PRN PRN Reason: Pain or Fever Stop: 01/25/21 20:24 Amlodipine Besylate (Amlodipine Besylate 5 Mg Tab) [facility] Stop: 01/26/21 08:59 Last Admin: 12/30/20 08:14 Dose: 10 mg Documented by: Apixaban (Apixaban 5 Mg Tablet) 5 mg PO BID [facility] Stop: 01/25/21 20:59 Last Admin: 12/30/20 08:14 Dose: 5 mg Documented by: Aspirin (Aspirin 81 Mg Ectab) [facility] Stop: 01/26/21 08:59 Last Admin: 12/30/20 08:14 Dose: 81 mg Documented by: Atorvastatin Calcium (Atorvastatin 40 Mg Tab) 40 mg PO QAM [facility] Stop: 01/26/21 08:59 Last Admin: 12/30/20 08:15 Dose: 40 mg Documented by: Dextrose (Dextrose 50% 50 Ml Syringe) 25 - 50 ml IV UD PRN; Protocol PRN Reason: Hypoglycemia Protocol Stop: 01/25/21 20:24 Furosemide (Furosemide 40 Mg Tab) 40 mg PO BID17 [facility] Stop: 01/29/21 16:59 Glucagon (Glucagon For Inj 1 Mg Vial) 1 mg SQ UD PRN; Protocol PRN Reason: Hypoglycemia Protocol Stop: 01/25/21 20:24 Glucose (Glucose 10 Tabs/Tube) 4 - 8 tabs PO UD PRN; Protocol PRN Reason: Hypoglycemia Protocol Stop: 01/25/21 20:24 Glucose (Glucose 40% Gel 15 Gm Tube) 15 - 30 gm PO UD PRN; Protocol PRN Reason: Hypoglycemia Protocol Stop: 01/25/21 20:24 Insulin Aspart (Insulin Aspart 100 Units/Ml 3 Ml Pen) 0 units SC ACHS [facility] Stop: 01/25/21 20:59 Last Admin: 12/30/20 08:12 Dose: 13 units Documented by: Insulin Glargine (Insulin Glargine Solostar 100 Units/Ml 3 Ml Pen) 0 units SC BID [facility]; Protocol Stop: 01/25/21 20:59 Last Admin: 12/30/20 08:16 Dose: 10 units Documented by: Labetalol HCl (Labetalol Hcl Iv 5 Mg/Ml 20ml) 10 mg IV Q6H PRN PRN Reason: SBP >170 or DBP >110 Stop: 01/25/21 20:24 Losartan Potassium (Losartan Potassium 50 Mg Tab) 100 mg PO QAM [facility] Stop: 01/28/21 08:59 Last Admin: 12/30/20 08:16 Dose: 100 mg Documented by: Miscellaneous (Carbohydrates For Hypoglycemia ) 15 - 30 gm PO UD PRN PRN Reason: Hypoglycemia Protocol Stop: 01/25/21 20:24 Ondansetron HCl (Ondansetron Inj 2 Mg/Ml 2 Ml Vial) 4 mg IV Q6H PRN PRN Reason: Nausea Stop: 01/25/21 20:24 Polyethylene Glycol (Polyethylene (Miralax) 17 Gm Pack) 17 gm PO DAILY PRN PRN Reason: Constipation Stop: 01/25/21 20:24 Sotalol HCl (Sotalol Hcl 80 Mg Tab) 80 mg PO BID [facility] Stop: 01/27/21 13:34 Last Admin: 12/30/20 08:16 Dose: 80 mg Documented by:
--- NOTE | 2020-12-30 12:22 | Hospitalist Progress Note ---
Date of Service December 30, 2020 Assessment & Plan (1) New onset atrial fibrillation: This is a 60-year-old male with PMH of uncontrolled hypertension, type 2 diabetes, chronic systolic heart failure, chronic lower extremity superficial thrombus, thoracic aortic aneurysm, HTN, obesity and other medical problems listed below who presents with worsening shortness of breath and lower extremity swelling over the past few days and was found to have new onset A Fib with RVR and decompensated heart failure. Status post successful cardioversion Has been on Eliquis for chronic DVT which has been continued for stroke prophylaxis Cardiology eval appreciated, Remains in sinus with rate controlled. Started on sotalol load 12/28/2020 Stable QTC interval Plan to discharge home tomorrow after completion of sotalol load (2) Heart failure, systolic, with acute decompensation: History of dilated cardiomyopathy in the past with EF as low as 20-25% in 2013 Most recent echo from Jul 2019 with improved EF of 40-45% with moderate concentric ventricular hypertrophy and bordlerline RV dilatation Presenting with 3+ BLE edema, SOB. BNP 1,842. CXR with interval progression of the cardiomegaly and mild interstitial pulmonary edema Continue diuresis with 40mg IV Lasix BID -had improvement of orthopnea, lower extremity swelling Patient diuresed well with IV Lasix, Negative balance, Compensated heart failure now Appreciate cardiology input, changed to p.o. Lasix patient will be discharged on p.o. regimen (3) Type 2 diabetes mellitus: Basal/bolus insulin while in-patient [facility] (4) Uncontrolled hypertension: History of uncontrolled HTN - possible underlying JANI? Better controlled BP one [id number] Currently on Norvasc 10 mg/Lasix 40 mg twice daily/losartan 100 mg daily (5) Chronic deep vein thrombosis (DVT): Doppler of RLE without sonographic evidence of deep venous thrombosis. Presence of chronic superficial venous thrombus Continue Eliquis (6) Thoracic aortic aneurysm: History of 4.5 cm ascending thoracic aortic aneurysm on chest CTA in Jul 2019 No chest pain (7) Dyslipidemia: Continue statin DVT Ppx: Eliquis Code status: FULL PCP: [place] Dispo: Possible discharge home tomorrow after completion of sotalol load Admission and Anticipated Discharge Date Admission Date: December 26, 2020 Subjective Follow-up visit for A. fib RVR new onset, Decompensated CHF Patient states he feels a lot better, remains in sinus with rate controlled, No complaint of orthopnea Able to walk on the hallway, with no dyspnea on exertion no hypoxia Does not have any cough or chest heaviness. Lower extremity edema/swelling has improved No fever or chills Review of Systems Review of Systems: All systems reviewed & are unremarkable except as noted in Subjective Physical Exam Constitutional: WD/WN, vitals as above + obese Eyes: PERRL, conjunctivae normal, anicteric sclerae ENMT: external ear and nose normal, oropharynx normal Neck: trachea midline, no thyromegaly Respiratory: normal respiratory effort, lungs clear to auscultation Cardiovascular: Rate/Rhythm: regular rate and regular rhythm Extremities: + edema (Improved lower extremity edema with chronic venous stasis change) Gastrointestinal (Abdomen): Percussion/Palpation: abdomen soft; abdomen nontender Musculoskeletal: no cyanosis or clubbing, extremities motor strength 5/5 Skin: no rashes, warm and dry Neurologic: PERRL, EOMI, accommodation nl, no face palsy, no dysarthria Psychiatric: A+Ox3, euthymic affect Results & Data Results & Data ([facility]) Vital Signs (Past 12 Hours) Vital Signs Temp Pulse Pulse Pulse Resp BP BP 12/30/20 09:31 70 142/90 H 12/30/20 08:41 36.5 C 70 16 178/115 H 189/130 H 12/30/20 07:39 73 12/30/20 03:30 36.7 C 79 18 156/91 H Pulse Ox 12/30/20 09:31 12/30/20 08:41 95 12/30/20 07:39 12/30/20 03:30 90
[2020-12-30] MEDS: FUROSEMIDE 40 MG TAB PO SCH (17:10)
[2020-12-30] MEDS ORDERED: TERAZOSIN HCL 1 MG CAP PO SCH (21:00)
--- NOTE | 2020-12-31 07:43 | Electrocardiogram Report ---
Test Reason : Blood Pressure : / mmHG Vent. Rate : 070 BPM Atrial Rate : 070 BPM P-R Int : 220 ms QRS Dur : 116 ms QT Int : 410 ms P-R-T Axes : 042 -71 072 degrees QTc Int : 443 ms Sinus rhythm with 1st degree A-V block Possible Left atrial enlargement Left axis deviation Abnormal ECG Confirmed by Vasu Lacey ([id number]) on 12/31/2020 7:42:59 AM Referred By: REFERRED SELF Confirmed By:Travis Lacey
[2020-12-31 07:45] LABS: Calcium 9.4 mg/dl (8.5-10.1); Creatinine Clr Calc Pharmacy 145.2 ml/min; Est GFR (African American) 112.2 ml/min; Est GFR (Non-African American) 96.8 ml/min; Potassium 3.5 mmol/L (3.5-5.1)
[2020-12-31] MEDS: ASPIRIN 81 MG ECTAB PO SCH (08:23)
[2020-12-31] MEDS: LOSARTAN POTASSIUM 50 MG TAB PO SCH (08:23)
[2020-12-31] MEDS: APIXABAN 5 MG TABLET PO SCH (08:23)
[2020-12-31] MEDS: SOTALOL HCL 80 MG TAB PO SCH (08:24)
[2020-12-31] MEDS: INSULIN GLARGINE SOLOSTAR 100 UNITS/ML 3 ML PEN SC SCH (08:24)
[2020-12-31] MEDS: FUROSEMIDE 40 MG TAB PO SCH (08:24)
[2020-12-31] MEDS: ATORVASTATIN 40 MG TAB PO SCH (08:24)
[2020-12-31] MEDS: INSULIN ASPART 100 UNITS/ML 3 ML PEN SC SCH ×2 (08:25→11:57)
[2020-12-31] MEDS ORDERED: TERAZOSIN HCL 1 MG CAP PO SCH (09:00)
--- NOTE | 2020-12-31 13:11 | Cardiology Progress Note ---
Date of Service December 31, 2020 Assessment & Plan (1) New onset atrial fibrillation: (2) Heart failure, systolic, with acute decompensation: (3) Thoracic aortic aneurysm: (4) Chronic systolic heart failure: (5) Uncontrolled hypertension: (6) Chronic deep vein thrombosis (DVT): (7) Type 2 diabetes mellitus: The patient remains hypertensive. I increased his Hytrin this morning but he is still hypertensive. I am going to restart his hydralazine at 75 mg 3 times daily. His heart rhythm is stable. He can continue the sotalol and I believe he can be discharged home to outpatient follow-up. I will arrange follow-up with our group. Admission and Anticipated Discharge Date Admission Date: December 26, 2020 Subjective No new cardiac complaints today. Review of Systems Review of Systems: All systems reviewed & are unremarkable except as noted in Subjective Physical Exam Physical Exam: General: no acute distress and stated age Head: normocephalic, no masses, lesions, tenderness or abnormalities Eyes: conjunctiva are pink and non-injected, sclera clear Neck: supple, no adenopathy, no bruits, normal jugular venous pulse, no hepatojugular reflux Chest: normal shape and normal respiratory effort Lungs: clear to auscultation and percussion Cardiac Exam: - regular rate & rhythm, no murmurs gallops or rubs - normal S1, normal S2 Pulses: 2(+) throughout Abdomen: abdomen soft, non-tender, no abnormal masses and no hepatosplenomegaly Musculoskeletal: no gait disturbance, no joint inflammation, no deforming arthritis Extremities: no edema and no cyanosis Neuro: grossly normal exam Results & Data ([facility]) Vital Signs (Past 12 Hours) Vital Signs Temp Pulse Pulse Resp BP BP Pulse Ox 12/31/20 12:10 36.4 C L 69 16 163/109 H 94 12/31/20 09:45 166/114 H 12/31/20 08:12 36.5 C 71 16 173/106 H 95 12/31/20 07:20 71 12/31/20 03:36 36.4 C L 78 20 148/94 H 93 Laboratory Results Laboratory Results - last 24 hr 12/30/20 12/30/20 12/31/20 15:51 20:38 07:09 Sodium 140 Potassium 3.5 Chloride 106 Carbon Dioxide 30 Anion Gap 4.0 BUN 19 H Creatinine 0.82 Est Cr Clr Drug Dosing 145.2 Est GFR ( Amer) 112.2 Est GFR (Non-Af Amer) 96.8 BUN/Creatinine Ratio 23.0 H Glucose 124 H POC Glucose 100 H 127 H Calcium 9.4 12/31/20 12/31/20 07:51 11:35 Sodium Potassium Chloride Carbon Dioxide Anion Gap BUN Creatinine Est Cr Clr Drug Dosing Est GFR ( Amer) Est GFR (Non-Af Amer) BUN/Creatinine Ratio Glucose POC Glucose 128 H 209 H Calcium Medications Administered Current Inpatient Medications Acetaminophen (Acetaminophen 325 Mg Tab) 650 mg PO Q4H PRN PRN Reason: Pain or Fever Stop: 01/25/21 20:24 Apixaban (Apixaban 5 Mg Tablet) 5 mg PO BID [facility] Stop: 01/25/21 20:59 Last Admin: 12/31/20 08:23 Dose: 5 mg Documented by: Aspirin (Aspirin 81 Mg Ectab) 81 mg PO QAM [facility] Stop: 01/26/21 08:59 Last Admin: 12/31/20 08:23 Dose: 81 mg Documented by: Atorvastatin Calcium (Atorvastatin 40 Mg Tab) 40 mg PO QAM [facility] Stop: 01/26/21 08:59 Last Admin: 12/31/20 08:24 Dose: 40 mg Documented by: Dextrose (Dextrose 50% 50 Ml Syringe) 25 - 50 ml IV UD PRN; Protocol PRN Reason: Hypoglycemia Protocol Stop: 01/25/21 20:24 Furosemide (Furosemide 40 Mg Tab) 40 mg PO BID17 [facility] Stop: 01/29/21 16:59 Last Admin: 12/31/20 08:24 Dose: 40 mg Documented by: Glucagon (Glucagon For Inj 1 Mg Vial) 1 mg SQ UD PRN; Protocol PRN Reason: Hypoglycemia Protocol Stop: 01/25/21 20:24 Glucose (Glucose 10 Tabs/Tube) 4 - 8 tabs PO UD PRN; Protocol PRN Reason: Hypoglycemia Protocol Stop: 01/25/21 20:24 Glucose (Glucose 40% Gel 15 Gm Tube) 15 - 30 gm PO UD PRN; Protocol PRN Reason: Hypoglycemia Protocol Stop: 01/25/21 20:24 Hydralazine HCl (Hydralazine Hcl 25 Mg Tab) 75 mg PO TID [facility] Stop: 01/30/21 13:59 Insulin Aspart (Insulin Aspart 100 Units/Ml 3 Ml Pen) 0 units SC ACHS [facility] Stop: 01/25/21 20:59 Last Admin: 12/31/20 11:57 Dose: 18 units Documented by: Insulin Glargine (Insulin Glargine Solostar 100 Units/Ml 3 Ml Pen) 0 units SC BID [facility]; Protocol Stop: 01/25/21 20:59 Last Admin: 12/31/20 08:24 Dose: 10 units Documented by: Labetalol HCl (Labetalol Hcl Iv 5 Mg/Ml 20ml) 10 mg IV Q6H PRN PRN Reason: SBP >170 or DBP >110 Stop: 01/25/21 20:24 Losartan Potassium (Losartan Potassium 50 Mg Tab) 100 mg PO QAM [facility] Stop: 01/28/21 08:59 Last Admin: 12/31/20 08:23 Dose: 100 mg Documented by: Miscellaneous (Carbohydrates For Hypoglycemia ) 15 - 30 gm PO UD PRN PRN Reason: Hypoglycemia Protocol Stop: 01/25/21 20:24 Ondansetron HCl (Ondansetron Inj 2 Mg/Ml 2 Ml Vial) 4 mg IV Q6H PRN PRN Reason: Nausea Stop: 01/25/21 20:24 Polyethylene Glycol (Polyethylene (Miralax) 17 Gm Pack) 17 gm PO DAILY PRN PRN Reason: Constipation Stop: 01/25/21 20:24 Sotalol HCl (Sotalol Hcl 80 Mg Tab) 80 mg PO BID [facility] Stop: 01/27/21 13:34 Last Admin: 12/31/20 08:24 Dose: 80 mg Documented by: Terazosin HCl (Terazosin Hcl 1 Mg Cap) 2 mg PO BID [facility] Stop: 01/30/21 08:59 Last Admin: 12/31/20 09:45 Dose: 2 mg Documented by:
[2020-12-31] MEDS ORDERED: hydrALAZINE HCL 25 MG TAB PO SCH (14:00)
--- NOTE | 2020-12-31 14:24 | Hospitalist Progress Note ---
Date of Service December 31, 2020 Assessment & Plan (1) New onset atrial fibrillation: This is a 60-year-old male with PMH of uncontrolled hypertension, type 2 diabetes, chronic systolic heart failure, chronic lower extremity superficial thrombus, thoracic aortic aneurysm, HTN, obesity and other medical problems listed below who presents with worsening shortness of breath and lower extremity swelling over the past few days and was found to have new onset A Fib with RVR and decompensated heart failure. Status post successful cardioversion Has been on Eliquis for chronic DVT which has been continued for stroke prophylaxis Cardiology eval appreciated, Remains in sinus with rate controlled. Patient completed sotalol no load Normal QTC, stable to be discharged home today (2) Heart failure, systolic, with acute decompensation: History of dilated cardiomyopathy in the past with EF as low as 20-25% in 2013 Most recent echo from Jul 2019 with improved EF of 40-45% with moderate concentric ventricular hypertrophy and bordlerline RV dilatation Presenting with 3+ BLE edema, SOB. BNP 1,842. CXR with interval progression of the cardiomegaly and mild interstitial pulmonary edema Continue diuresis with 40mg IV Lasix BID -had improvement of orthopnea, lower extremity swelling Patient diuresed well with IV Lasix, Negative balance, Compensated heart failure now Appreciate cardiology input, changed to p.o. Lasix Patient is discharged on 40 mg p.o. twice daily Lasix (3) Type 2 diabetes mellitus: Basal/bolus insulin while in-patient BSG AC HS (4) Uncontrolled hypertension: History of uncontrolled HTN - possible underlying JANI? Currently on Norvasc 10 mg/Lasix 40 mg twice daily/losartan 100 mg daily Discussing with cardiology, Norvasc discontinued as it can worsen lower extremity edema Patient will be discharged on losartan 100 mg daily, Lasix 40 mg p.o. twice daily, added Hytrin 2 mg twice daily Hydralazine 75 mg 3 times daily resumed as blood pressure remains elevated Patient given instruction for low-salt diet, Voices understanding (5) Chronic deep vein thrombosis (DVT): Doppler of RLE without sonographic evidence of deep venous thrombosis. Presence of chronic superficial venous thrombus Continue Eliquis (6) Thoracic aortic aneurysm: History of 4.5 cm ascending thoracic aortic aneurysm on chest CTA in Jul 2019 No chest pain (7) Dyslipidemia: Continue statin DVT Ppx: Eliquis Code status: FULL PCP: [place] Dispo: Patient is stable to be discharged home today Admission and Anticipated Discharge Date Admission Date: December 26, 2020 Subjective Visit for decompensated CHF, new onset of A. fib RVR No new cardiac complaints today. Shortness of breath dyspnea on exertion has resolved, feels much better after significant diuresis No hypoxia Lower extremity swelling has improved Patient remained in normal sinus rhythm with controlled rate No complaint of palpitation or flutter No fever or chills no cough Review of Systems Review of Systems: All systems reviewed & are unremarkable except as noted in Subjective Physical Exam Constitutional: WD/WN, vitals as above + obese Eyes: PERRL, conjunctivae normal, anicteric sclerae ENMT: external ear and nose normal, oropharynx normal Neck: trachea midline, no thyromegaly Respiratory: normal respiratory effort, lungs clear to auscultation Cardiovascular: Rate/Rhythm: regular rate and regular rhythm Extremities: + edema (Minimum lower extremity edema with chronic venous stasis change) Gastrointestinal (Abdomen): Percussion/Palpation: abdomen soft; abdomen nontender Musculoskeletal: no cyanosis or clubbing, extremities motor strength 5/5 Skin: no rashes, warm and dry Neurologic: PERRL, EOMI, accommodation nl, no face palsy, no dysarthria Psychiatric: A+Ox3, euthymic affect Results & Data Results & Data ([facility]) Vital Signs (Past 12 Hours) Vital Signs Temp Pulse Pulse Resp BP BP Pulse Ox 12/31/20 14:23 149/102 H 12/31/20 12:10 36.4 C L 69 16 163/109 H 94 12/31/20 09:45 166/114 H 12/31/20 08:12 36.5 C 71 16 173/106 H 95 12/31/20 07:20 71 12/31/20 03:36 36.4 C L 78 20 148/94 H 93
--- NOTE | 2020-12-31 17:23 | Discharge Summary ---
Date of Service December 31, 2020 Admission HPI Per Admitting Provider This is a 60-year-old male with PMH of uncontrolled hypertension, type 2 diabetes, chronic systolic heart failure, chronic lower extremity superficial thrombus, thoracic aortic aneurysm, HTN, obesity and other medical problems listed below who presents with worsening shortness of breath and lower extremity swelling over the past few days. Endorses feeling progressively more short of breath over the past few months but noticed other symptoms over the past week as well, including significantly worsened swelling of bilateral lower extremities R>L. Also feels that his blood pressure is "still running high" due to feeling tired all the time. Does not have home blood pressure cuff. Has been taking home medications as scheduled. Has not followed up with Dr. Evans in over a year. Has gained weight but unsure how much. Unable to put on pants today due to increased swelling of BLE. Denies orthopnea or PND. Has a residual dry cough from URI 1 month ago. No history of known arrhythmias. Denies lightheadedness, visual changes, palpitations or chest pain. Is on Eliquis for chronic superficial DVT in E. Diet includes a lot of packaged foods and snacks but states he is willing to make dietary changes. Drinks 64 oz of diet Mountain Dew daily. Denies fever, chills, congestion, nausea, vomiting, abdominal pain, dysuria, diarrhea or constipation. Principal Diagnosis Atrial fibrillation status post cardioversion Acute on chronic CHF with systolic dysfunction-compensated Chronic bilateral lower extremity lymphedema/swelling Discharge Exam Constitutional WD/WN, vitals as above + obese Eyes PERRL, conjunctivae normal, anicteric sclerae ENMT external ear and nose normal, oropharynx normal Neck trachea midline, no thyromegaly Respiratory normal respiratory effort, lungs clear to auscultation Cardiovascular Rate/Rhythm: regular rate and regular rhythm Extremities: + edema (Minimum lower extremity edema with chronic venous stasis change) Gastrointestinal (Abdomen) Percussion/Palpation: abdomen soft; abdomen nontender Musculoskeletal no cyanosis or clubbing, extremities motor strength 5/5 Skin no rashes, warm and dry Neurologic PERRL, EOMI, accommodation nl, no face palsy, no dysarthria Psychiatric A+Ox3, euthymic affect Discharge Data Allergies Allergy/AdvReac Type Severity Reaction Status Date / Time No Known Allergies Allergy Unverified 12/26/20 14:38 Consultations 12/26/20 17:23 ED Decision to Admit Stat 12/26/20 20:25 Consult Cardiology Routine Procedures Performed Operation Date: 12/28/20 11:30 Actual Procedures p Cardioversion - Scott Fischer DO Ordered Studies 12/26/20 12:43 US venous doppler LE RT Stat Hospital Course (1) New onset atrial fibrillation: This is a 60-year-old male with PMH of uncontrolled hypertension, type 2 diabetes, chronic systolic heart failure, chronic lower extremity superficial thrombus, thoracic aortic aneurysm, HTN, obesity and other medical problems listed below who presents with worsening shortness of breath and lower extremity swelling over the past few days and was found to have new onset A Fib with RVR and decompensated heart failure. Status post successful cardioversion Has been on Eliquis for chronic DVT which has been continued for stroke prophylaxis Cardiology eval appreciated, Remains in sinus with rate controlled. Patient completed sotalol no load Normal QTC, stable to be discharged home today (2) Heart failure, systolic, with acute decompensation: History of dilated cardiomyopathy in the past with EF as low as 20-25% in 2013 Most recent echo from Jul 2019 with improved EF of 40-45% with moderate concentric ventricular hypertrophy and bordlerline RV dilatation Presenting with 3+ BLE edema, SOB. BNP 1,842. CXR with interval progression of the cardiomegaly and mild interstitial pulmonary edema Continue diuresis with 40mg IV Lasix BID -had improvement of orthopnea, lower extremity swelling Patient diuresed well with IV Lasix, Negative balance, Compensated heart failure now Appreciate cardiology input, changed to p.o. Lasix Patient is discharged on 40 mg p.o. twice daily Lasix (3) Type 2 diabetes mellitus: Basal/bolus insulin while in-patient BSG AC HS (4) Uncontrolled hypertension: History of uncontrolled HTN - possible underlying JANI? Currently on Norvasc 10 mg/Lasix 40 mg twice daily/losartan 100 mg daily Discussing with cardiology, Norvasc discontinued as it can worsen lower extremity edema Patient will be discharged on losartan 100 mg daily, Lasix 40 mg p.o. twice daily, added Hytrin 2 mg twice daily Hydralazine 75 mg 3 times daily resumed as blood pressure remains elevated Patient given instruction for low-salt diet, Voices understanding (5) Chronic deep vein thrombosis (DVT): Doppler of RLE without sonographic evidence of deep venous thrombosis. Presence of chronic superficial venous thrombus Continue Eliquis (6) Thoracic aortic aneurysm: History of 4.5 cm ascending thoracic aortic aneurysm on chest CTA in Jul 2019 No chest pain (7) Dyslipidemia: Continue statin DVT Ppx: Eliquis Code status: FULL PCP: [place] Dispo: Patient is stable to be discharged home today Total Time Total Time Spent Total Time Spent (In Minutes): Approximately 40 minutes Total Time Includes: Examination of the Patient, Discharge Planning and Medication Reconciliation Discharge Plan Discharge Items Patient Disposition: Home - Self-Care Reason For Visit: new onset a fib, chronic dvt, decompensated hf Discharge Diagnosis: Atrial fibrillation status post cardioversion Acute on chronic CHF with systolic dysfunction-compensated Chronic bilateral lower extremity lymphedema/swelling Activity: Resume your previous activity Non-emergency contact: Primary Care Provider Call non-emergency contact if: you have any medication questions Follow-up/Referrals: Jeronimo Evans DO [[employer]] - (Follow-up with cardiology as scheduled.) Deborah Osborne MD [Primary Care Provider] - (Date & Time 01/04/2021 11:40 AM Provider Prachi Osborne MD Department Family Medicine [facility] [place] ) Diet: Carb Consistent or DM2 and Heart Healthy Add Attending Provider Instructions: Please take all medications as instructed on discharge list below. It is recommended that you follow-up with your primary care physician within 1-2 weeks of hospital discharge to ensure you are still doing well. Please call if you have any questions or problems. You can reach a [facility] hospitalist on duty at [facility] 24 hours a day by calling [phone] [employer] Manager Provider Instructions: Call your Primary Care doctor if any of the following symptoms or problems start or get worse: * Shortness of breath or difficulty breathing * Wake up at night short of breath * Chest pain * Cough * Swelling of your hands, feet, or legs * More fatigued or tired with your normal activity * Palpitations - sudden fast heart beats WEIGHT * Weigh yourself every morning after using the bathroom. * Use the same scale. * Wear the same amount of clothing. * Write your weight down on a chart. * Call your Primary Care doctor if you gain more than 2-3 pounds in 1-2 days. MEDICATIONS * Use this discharge instruction sheet for medication instructions. * Take your medications at the time your doctor ordered. * Do not skip a dose of your medicines. * If you miss a dose of medicine, take it as soon as possible, but DO NOT DOUBLE A DOSE. * Read your medicine information when you get home. * Know all of the side effects of your medicine. If in doubt, ask your pharmacist * Call your Primary Care doctor's office if you have any side effects. * Be sure all of your doctors know what medicine and herbs you take (including cold, flu, and herbal medicine). Take the following with you to your follow-up doctor appointments: * Weight Chart * Medication List * List of questions Do not drink excessive alcohol, beer or wine. Pending Studies at Discharge: No Stand-Alone Forms: My [facility] [employer], Work/School Release, Smoking Cessation Medications and DC Order Prescriptions: New sotalol 80 mg Tablet 80 mg PO BID 30 Days Qty: 60 RF: 0 losartan 100 mg tablet 100 mg PO DAILY Qty: 30 RF: 0 furosemide 40 mg Tablet 40 mg PO BID 30 Days Qty: 60 RF: 0 terazosin 2 mg capsule 2 mg PO BID Qty: 60 RF: 0 Continued atorvastatin [Lipitor] 40 mg tablet 40 mg PO QAM RF: 0 hydralazine 25 mg tablet 75 mg PO TID RF: 0 aspirin [Aspirin Childrens] 81 mg Tablet,Chewable 81 mg PO QAM RF: 0 insulin lispro [Humalog KwikPen Insulin] 100 unit/mL insulin pen 10 unit SUBCUT BIDM RF: 0 Lantus Solostar U-100 Insulin 100 unit/mL (3 mL) insulin pen 30 unit SUBCUT QAM RF: 0 Eliquis 5 mg tablet 5 mg PO BID RF: 0 Discontinued furosemide [Lasix] 40 mg tablet 40 - 60 mg PO DAILY RF: 0 carvedilol [Coreg] 25 mg tablet 25 mg PO BID RF: 0 lisinopril [Prinivil] 20 mg tablet 20 mg PO BID RF: 0 amlodipine [Norvasc] 5 mg tablet 10 mg PO QAM RF: 0 Discharge Orders: Discharge Order (Routine); Ordered 12/31/20 Ordered By: Christine Barton/Other Patient Handouts: Managing Type 2 Diabetes, ED Atrial Fibrillation, ED Low-Salt Diet, A1C Admission Data Admit Date/Time: 12/26/20 17:52 Attending Provider: Christine Baumann Admit Provider: Jeff Nicole Primary Care Provider: Deborah Osborne Other Providers: Jeff Nicole ; Scott Fischer Other Interventions: Discharge Summary Assessment (RN) Last Done: 12/31/20 14:41
== END 2020-12-31 15:46 | disposition home or self-care (01) | DRG 308 ==
LOC: ED 11:31 → SUATTDRO 17:52 → 2S 17:52
DX: I50.23 Acute on chronic systolic (congestive) heart failure; E78.5 Hyperlipidemia, unspecified; I82.811 Embolism and thrombosis of superficial veins of right lower extremity; Z68.41 Body mass index [BMI] 40.0-44.9, adult; I71.6 Thoracoabdominal aortic aneurysm, without rupture; Z79.01 Long term (current) use of anticoagulants; E66.01 Morbid (severe) obesity due to excess calories; E11.9 Type 2 diabetes mellitus without complications; I89.0 Lymphedema, not elsewhere classified; I42.0 Dilated cardiomyopathy; I11.0 Hypertensive heart disease with heart failure; Z79.4 Long term (current) use of insulin; Z83.3 Family history of diabetes mellitus; I48.91 Unspecified atrial fibrillation